=== PATIENT | female | born 1930 | race Hispanic/Latino ===

== ENCOUNTER 2017-04-29 10:57 | Emergency (ER) | payer MEDICARE, OTHER ==
[2017-04-29 10:57] VITALS: BMI 24.7
[2017-04-29 11:04] VITALS: RESP 18; TEMP 97.5
--- NOTE | 2017-04-29 11:25 | ED PDOC ---
Arrival/HPI - General Chief Complaint: Trauma Time Seen by Provider: 04/29/17 11:02 Historian: Patient - History of Present Illness Narrative History of Present Illness (Text): 04/29/17 11:22 86 year old female whose past medical history includes CAD, constipation, hyperkalemia, and alcoholism presents to the emergency department after mechanical fall prior to arrival. Patient states she remembers the entire episode. Denies loss of consciousness. Denies dizziness or weakness before the episode. Patient denies any headache at this time. No other complaints. Patient denies taking any blood thinners except for Aspirin. Patient reports last tetanus a few months ago. Time/Duration: Prior to Arrival Symptom Onset: Sudden Modifying Factors (Text): None Associated Symptoms (Text): None Past Medical History - Provider Review Nursing Documentation Reviewed: Yes - Infectious Disease Hx of Infectious Diseases: None - Tetanus Immunization Tetanus Immunization: Unknown - Cardiac Hx Cardiac Disorders: Yes Hx Hypertension: Yes - Pulmonary Hx Respiratory Disorders: No - Neurological Hx Neurological Disorder: No - HEENT Hx HEENT Disorder: Yes Hx Macular Degeneration: Yes - Renal Hx Renal Disorder: No - Endocrine/Metabolic Hx Endocrine Disorders: No - Hematological/Oncological Hx Blood Disorders: No - Integumentary Hx Dermatological Disorder: No Hx Basal Cell Carcinoma: Yes (right forehead) - Musculoskeletal/Rheumatological Hx Falls: Yes - Gastrointestinal Hx Gastrointestinal Disorders: Yes (colitis) - Genitourinary/Gynecological Hx Reproductive Disorders: No - Psychiatric Hx Psychophysiologic Disorder: No Hx Depression: No Hx Emotional Abuse: No Hx Physical Abuse: No Hx Substance Use: No - Surgical History Hx Hysterectomy: Yes (fibroid) - Anesthesia Hx Anesthesia: Yes Hx Anesthesia Reactions: No Hx Malignant Hyperthermia: No - Suicidal Assessment Feels Threatened In Home Enviroment: No Family/Social History - Physician Review Nursing Documentation Reviewed: Yes Family/Social History: Unknown Family HX Smoking Status: Never Smoked Hx Alcohol Use: No Hx Substance Use: No Hx Substance Use Treatment: No Allergies/Home Meds Allergies/Adverse Reactions: Allergies No Known Allergies Allergy (Verified 05/11/12 08:24) Home Medications: Home Meds Medication Instructions Recorded Confirmed Aspirin [Ecotrin] 81 mg PO DAILY 01/02/17 01/02/17 Ergocalciferol (Vitamin D2) PO DAILY 01/02/17 [Vitamin D] Esomeprazole Magnesium [Nexium] PO DAILY 01/02/17 Metoprolol Succinate [Toprol XL] PO DAILY 01/02/17 Rosuvastatin Calcium 2.5 [Crestor] PO DAILY 01/02/17 Rosuvastatin Calcium [Crestor] PO DAILY 01/02/17 amLODIPine [Norvasc] PO DAILY 01/02/17 Review of Systems - Physician Review All systems were reviewed & negative as marked: Yes Physical Exam - Physical Exam Narrative Physical Exam (Text): - Review of Systems Constitutional: Normal. absent: Fatigue, Weight Change, Fevers Eyes: Normal ENT: Normal Respiratory: Normal absent: SOB, Cough, Sputum Cardiovascular: Normal absent: Chest pain, Palpitations, Syncope Gastrointestinal: Normal absent: Abdominal pain, Diarrhea, Nausea, Vomiting Genitourinary: Normal. absent: Dysuria, Frequency, Hematuria Musculoskeletal: Normal absent: Arthralgias, Back Pain, Neck Pain Skin: Abrasion to forehead and left elbow Neurological: Normal absent: Dizziness, Focal Weakness, Headache Endocrine: Normal Hemo/Lymphatic: Normal Psychiatric: Normal - Physical exam Patient appears age appropriate, speaking full sentences without difficulty No nasal bone deformity or tenderness, no active nasal bleeding, no facial or jaw pain/swelling. No neck midline tenderness, thoracic and lumbar spine with no midline tenderness. Pt moving b/l upper and lower extremities without difficulty, 5/5 strength, with full active and passive ROM. Distal neurovasc fully intact. Abd soft/nt/nd, no hematomas, no peritoneal signs. Neg. pelvic rock. - Systems Exam Head: Present: Bruising on forehead, Superficial abrasion on scalp, Normocephalic Pupils: Present: PERRL Extraocular Muscles: Present: EOMI Conjunctiva: Present: Normal Mouth: Present: Moist Mucous Membranes Neck: Present: Normal Range of Motion. No: MIDLINE TENDERNESS, Paraspinal Tenderness Respiratory/Chest: Present: Clear to Auscultation, Good Air Exchange. No: Respiratory Distress, Accessory Muscle Use, Tachypneic Cardiovascular: Present: Regular Rate and Rhythm, Normal S1, S2, Peripheral Pulses Present. No: Murmurs Abdomen: Present: Normal Bowel Sounds, No: Tenderness, Peritoneal Signs, Rebound, Guarding, Distention Back: Present: Normal Inspection. No: Midline Tenderness, Paraspinal Tenderness Upper Extremity: Present: Left elbow: Superficial abrasion, Full range of motion No: Cyanosis, Edema Lower Extremity: Present: Left knee: Bruising over left patella, Full range of motion No: Edema Neurological: Present: GCS=15, Speech Normal, cranial nerves II through XII fully intact with no cerebellar abnormality, neuro-sensory fully intact. No focal neurological deficits. Skin: Present: Warm, Dry, Normal Color. No: Rashes Lymphatic: Present: OX3, NI, NC Psychiatric: Present: Alert, Oriented x 3, Normal Insight, Normal Concentration. Vital Signs Reviewed: Yes Vital Signs Temp Pulse Resp BP Pulse Ox 04/29/17 12:36 68 18 109/66 98 04/29/17 11:03 97.5 F L 74 18 127/64 97 Temperature: Afebrile Blood Pressure: Normal Pulse: Regular Respiratory Rate: Normal Appearance: Positive for: Well-Appearing, Non-Toxic, Comfortable Pain Distress: None Mental Status: Positive for: Alert and Oriented X 3 Medical Decision Making ED Course and Treatment: Impression: 86 year old female whose past medical history includes CAD, constipation, hyperkalemia, and alcoholism presents to the emergency department after mechanical fall prior to arrival. On physical exam, patient has bruising on forehead, superficial abrasions on scalp and left elbow, and bruising to the left patella. Plan: -- CT's Head, C-spine -- XR's Left Elbow, Left Knee -- Tylenol -- Reassess and disposition Prior Visits: Notes and results from previous visits were reviewed. Patient discharged on after being treated for right lower quadrant abscess. Progress Notes: Patient's medication list reviewed. No blood thinners noted. CT Head Size Maker: Prince Slater MD IMPRESSION: No acute intracranial findings CT Cervical Spine Size Maker: Prince Slater MD IMPRESSION: No acute fractures X-ray Left Elbow Size Maker: Prince Slater MD IMPRESSION: Unremarkable radiographs of the left elbow. X-ray Left Knee Size Maker: Prince Slater MD IMPRESSION: Normal radiographs of the left knee. 04/29/17 12:51 had an extensive d/w pt that although xrays are negative for any acute bony abnormality, it is still very important to fu with pmd and ortho specialist for further w/u and testing such as MRI to r/o any ligamentous/tendenous/meniscal injury. Pt verbalized full understanding of above discussion. patient ambulating with a cane without other assistance states she feels comfortable being dc'd home with outpatient f/u denies any pain Pt states she understands to return to the ER right away for new or worsening symptoms or for inability to f/u with PMD or specialist as instructed. Patient states that she fully agrees with and understands discharge instructions. States that she agrees with the plan and disposition. Verbalized and repeated discharge instructions and plan. I have given the patient opportunity to ask any additional questions. 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 I have reviewed the chart and agree that the record accurately reflects my personal performance of the history, physical exam, medical decision making, and the department course for this patient. I have also personally directed, reviewed, and agree with the discharge instructions and disposition. Disposition/Present on Arrival - Present on Arrival Any Indicators Present on Arrival: No History of DVT/PE: No History of Uncontrolled Diabetes: No Urinary Catheter: No History of Decub. Ulcer: No History Surgical Site Infection Following: None - Disposition Have Diagnosis and Disposition been Completed?: Yes Diagnosis: Fall Disposition: HOME/ ROUTINE Disposition Time: 12:53 Patient Plan: Discharge Condition: GOOD Discharge Instructions (ExitCare): Fall Prevention for Older Adults (ED) Additional Instructions: PLEASE RETURN TO THE EMERGENCY DEPARTMENT FOR NEW OR WORSENING SYMPTOMS. RETURN RIGHT AWAY IF YOU CANNOT FOLLOW UP WITH YOUR PRIMARY CARE DOCTOR, CLINIC, OR SPECIALIST IN 1-2 DAYS. Referrals: Mason ADKINS,Lalito Dee MD [Primary Care Provider] - Follow up with primary
--- NOTE | 2017-04-29 12:00 | CT ---
PROCEDURE: CT HEAD WITHOUT CONTRAST. HISTORY: VILLA x2 weeks COMPARISON: 01/03/2017 TECHNIQUE: Axial computed tomography images were obtained through the head/brain without intravenous contrast. Radiation dose: Total exam DLP = 722 mGy-cm. This CT exam was performed using one or more of the following dose reduction techniques: Automated exposure control, adjustment of the mA and/or kV according to patient size, and/or use of iterative reconstruction technique. FINDINGS: HEMORRHAGE: No intracranial hemorrhage. BRAIN: No mass effect or edema. There is a focal area of encephalomalacia in the right anterior frontal lobe. This is unchanged. There are no acute intracranial findings VENTRICLES: Unremarkable. No hydrocephalus. CALVARIUM: Unremarkable. PARANASAL SINUSES: Unremarkable as visualized. No significant inflammatory changes. MASTOID AIR CELLS: Unremarkable as visualized. No inflammatory changes. OTHER FINDINGS: None. IMPRESSION: No acute intracranial findings
--- NOTE | 2017-04-29 12:02 | CT ---
PROCEDURE: CT Cervical Spine without contrast HISTORY: Fall COMPARISON: None available. TECHNIQUE: Axial computed tomography images were obtained of the cervical spine without the use of intravenous contrast. Coronal and sagittal reformatted images were created and reviewed. Radiation dose: Total exam DLP = 260 mGy-cm. This CT exam was performed using one or more of the following dose reduction techniques: Automated exposure control, adjustment of the mA and/or kV according to patient size, and/or use of iterative reconstruction technique. FINDINGS: VERTEBRAE: No fracture. Normal alignment. No destructive bony lesion. DISCS/SPINAL CANAL/NEURAL FORAMINA: No significant central canal or neural foraminal stenosis. Discs heights are grossly preserved. PARASPINAL SOFT TISSUES: Unremarkable. OTHER FINDINGS: There is facet arthropathy at multiple levels. IMPRESSION: No acute fractures
[2017-04-29 12:36] VITALS: BP 109/66; PULSE 68; O2SAT 98
--- NOTE | 2017-04-29 12:40 | RAD ---
PROCEDURE: Radiographs of the left elbow. HISTORY: fall COMPARISON: No prior. FINDINGS: BONES: Normal. No fracture. JOINTS: Normal. No osteoarthritis. SOFT TISSUES: Normal. JOINT EFFUSION: None. OTHER FINDINGS: None IMPRESSION: Unremarkable radiographs of the left elbow.
--- NOTE | 2017-04-29 12:41 | RAD ---
PROCEDURE: Left Knee Radiographs. HISTORY: Pain. COMPARISON: None. FINDINGS: BONES: Normal. No fracture. JOINTS: Normal. No osteoarthritis. JOINT EFFUSION: None. OTHER FINDINGS: None. IMPRESSION: Normal radiographs of the left knee.
== END 2017-04-29 13:02 | disposition home or self-care (01) ==
LOC: ED 10:57
DX: Z04.3 Encounter for examination and observation following other accident (principal); W01.198A Fall on same level from slipping, tripping and stumbling with subsequent striking against other object, initial encounter; Y93.89 Activity, other specified; Y92.89 Other specified places as the place of occurrence of the external cause; I10 Essential (primary) hypertension

== ENCOUNTER 2017-06-13 15:22 | Emergency (ER) | payer MEDICARE, OTHER ==
[2017-06-13 15:40] VITALS: BP 105/66; PULSE 72; RESP 17; TEMP 98.2; O2SAT 97; BMI 22.1
--- NOTE | 2017-06-13 16:01 | ED PDOC ---
Arrival/HPI - General Historian: Patient - History of Present Illness Time/Duration: 1 hour - General Chief Complaint: Trauma Time Seen by Provider: 06/13/17 15:28 - History of Present Illness Narrative History of Present Illness (Text): 06/13/17 15:57 87 year old female with past medical history of CAD, CHF, constipation , and alcohol abuse presents with left facial swelling after having a fall at home. Patient reports the fall happened 1 hour prior to ED arrival. She was walking to the restroom and her knees suddenly "gave out" which caused her to fall on her right side. She denies LOC, feeling dizzy, weakness, numbness or tingling in her lower extremities. Patient had 2 glasses of wine with lunch. Patient reports this is her 3rd fall this year. She is not taking any blood thinners besides Aspirin 81mg. She uses a cane to walk regular due to her "balance issues". Patient denies headache, fever, chills, SOB, chest pain, abdominal pain, n/v, hip pain, or diarrhea. (Kashmir Muniz) Past Medical History - Provider Review Nursing Documentation Reviewed: Yes - Infectious Disease Hx of Infectious Diseases: None - Tetanus Immunization Tetanus Immunization: Unknown - Cardiac Hx Cardiac Disorders: Yes Hx Hypertension: Yes - Pulmonary Hx Respiratory Disorders: No - Neurological Hx Neurological Disorder: No - HEENT Hx HEENT Disorder: Yes Hx Macular Degeneration: Yes - Renal Hx Renal Disorder: No - Endocrine/Metabolic Hx Endocrine Disorders: No - Hematological/Oncological Hx Blood Disorders: No - Integumentary Hx Dermatological Disorder: No Hx Basal Cell Carcinoma: Yes (right forehead) - Musculoskeletal/Rheumatological Hx Falls: Yes - Gastrointestinal Hx Gastrointestinal Disorders: Yes (colitis) - Genitourinary/Gynecological Hx Reproductive Disorders: No - Psychiatric Hx Psychophysiologic Disorder: No Hx Depression: No Hx Emotional Abuse: No Hx Physical Abuse: No Hx Substance Use: No - Surgical History Hx Hysterectomy: Yes (fibroid) - Anesthesia Hx Anesthesia: Yes Hx Anesthesia Reactions: No Hx Malignant Hyperthermia: No - Suicidal Assessment Feels Threatened In Home Enviroment: No Family/Social History Family/Social History: Unknown Family HX Smoking Status: Never Smoked Hx Alcohol Use: Yes Frequency of alcohol use: Socially Hx Substance Use: No Hx Substance Use Treatment: No Allergies/Home Meds Allergies/Adverse Reactions: Allergies No Known Allergies Allergy (Verified 05/11/12 08:24) Home Medications: Home Meds Medication Instructions Recorded Confirmed Aspirin [Ecotrin] 81 mg PO DAILY 01/02/17 01/02/17 Ergocalciferol (Vitamin D2) PO DAILY 01/02/17 [Vitamin D] Esomeprazole Magnesium [Nexium] PO DAILY 01/02/17 Metoprolol Succinate [Toprol XL] PO DAILY 01/02/17 Rosuvastatin Calcium 2.5 [Crestor] PO DAILY 01/02/17 Rosuvastatin Calcium [Crestor] PO DAILY 01/02/17 amLODIPine [Norvasc] PO DAILY 01/02/17 Review of Systems - Physician Review All systems were reviewed & negative as marked: Yes - Review of Systems Constitutional: Normal. absent: Fatigue, Fevers Eyes: Normal. absent: Vision Changes (No report diplopia), Photophobia ENT: Normal. absent: Hearing Changes Respiratory: Normal. absent: SOB, Cough Cardiovascular: Normal. absent: Chest Pain, Syncope Gastrointestinal: Normal. absent: Abdominal Pain Genitourinary Female: Normal. absent: Dysuria, Frequency, Hematuria Musculoskeletal: Normal. absent: Back Pain Skin: Other (right facial cheek swelling and ecchymosis) Neurological: Normal. absent: Headache, Dizziness Endocrine: Normal Psychiatric: Normal Physical Exam Vital Signs Reviewed: Yes Temperature: Afebrile Blood Pressure: Normal Pulse: Regular Respiratory Rate: Normal Appearance: Positive for: Well-Appearing, Non-Toxic, Comfortable Pain Distress: None Mental Status: Positive for: Alert and Oriented X 3 - Systems Exam Head: Present: Normocephalic, Swelling (extensive right cheek swelling), Ecchymosis (right cheek) Pupils: Present: PERRL, Other ( no diplopia). No: Sluggish, Non-Reactive Extroacular Muscles: Present: EOMI, Other (No pain with extroacular movement, tracking cross midline without difficulty) Conjunctiva: Present: Normal, Other (no subconjunctival hemorrhage appreciated) . No: Injected, Icteric Ears: Present: Normal Mouth: Present: Moist Mucous Membranes, Other (no lacerations appreciated inside of the oral cavity) Nose (External): Present: Atraumatic Neck: Present: Normal Range of Motion Respiratory/Chest: Present: Clear to Auscultation, Good Air Exchange. No: Respiratory Distress, Accessory Muscle Use Cardiovascular: Present: Regular Rate and Rhythm, Normal S1, S2. No: Murmurs Medical Decision Making ED Course and Treatment: 06/13/17 16:21 -CBC, CMP, Coag -UA -CT head, orbital, cervical -serum alcohol DDx: facial fracture, mechanical fall, alcohol intoxication 06/13/17 17:24 serum alcohol 75 UA positive nitrate and LE, patient has no dysuria 06/13/17 17:45 Case discussed with ophthalmology Dr. Barnes. Recommended Augmentin and Medrol dose pack, no further intervention indicated at this time. Progress note: Patient resting in pain comfortably. No reported pain or change of vision. Patient is able to walk with minimal assistance. No abnormal gait and knee pain , patient is at her baseline. 06/13/17 18:20 Discussed with patient extensively the importance of follow up PMD, import customs clearing agent and monitor for acute vision changes. Patient verbalized full understanding of above discussion. Patient states she understands to return to the ER right away for new or worsening symptoms or for inability to follow with PMD or import customs clearing agent as instructed. Patient will take medications prescribed as instructed. (Kashmir Muniz) In agreement with resident note which contains more details about the patient. Patient was seen and evaluated with resident. Came up with plan and treatment together. Patient is a 87 year old female who presents to the emergency department complaining of right facial swelling s/p fall earlier today. CT orbital shows inferior right orbital and lateral and medial maxillary sinus fractures with preseptal periorbital edema. HEENT: No evidence of entrapment. No hyphema. EOMI Intact. PERRLA. No redness. No epistaxis. Case discussed with Opthamology Dr. Barnes who recommends Augmentin and Medrol dose pack and to follow up with him at this clinic in 2-3days. Patient was walked and walked at her based. She walks with a cane. I offerred her admission for possible rehab and fpc and she does not want to stay. She states that last time she was here it took a long time for them to do this and she was miserable. She wants to go home. She is clinically sober and has capacity to make decisions. Her son picked her up and will take her home. She has good family support. (Eulogio Donovan) - Lab Interpretations Lab Results: 06/13/17 16:30 06/13/17 16:30 Lab Results 06/13/17 16:30: Alcohol, Quantitative 75 H 06/13/17 16:30: Sodium 131 L, Potassium 4.1, Chloride 98, Carbon Dioxide 20 L, Anion Gap 17, BUN 8, Creatinine 0.7, Est GFR ( Amer) > 60, Est GFR (Non- Af Amer) > 60, Random Glucose 90, Calcium 8.8, Total Bilirubin 0.7, AST 183 H, ALT 82 H, Alkaline Phosphatase 179 H, Total Protein 6.4, Albumin 3.4, Globulin 3.0, Albumin/Globulin Ratio 1.1 06/13/17 16:30: PT 12.5 H, INR 1.16 H, APTT 25.1 06/13/17 16:30: WBC 5.9 D, RBC 3.26 L, Hgb 11.0 L, Hct 31.9 L, MCV 97.9, MCH 33.7, MCHC 34.5, RDW 16.4 H, Plt Count 173, MPV 9.1, Gran % 64.0, Lymph % (Auto ) 30.4, [place] % (Auto) 4.4, Eos % (Auto) 0.7 L, Baso % (Auto) 0.5, Gran # 3.80, Lymph # 1.8, [place] # 0.3, Eos # 0.0, Baso # 0.03 06/13/17 16:10: Urine Color Yellow, Urine Appearance Cloudy, Urine pH 6.0, Ur Specific [place] >= 1.030, Urine Protein 100 H, Urine Glucose (UA) Negative, Urine Ketones Negative, Urine Blood Large H, Urine Nitrate Positive H, Urine Bilirubin Negative, Urine Urobilinogen 0.2, Ur Leukocyte Esterase Small H, Urine RBC 10 - 15, Urine WBC 25 - 30, Ur Epithelial Cells 3 - 4, Urine Bacteria Mod - RAD Interpretation Narrative RAD Interpretations (Text): 06/13/17 18:47 PROCEDURE: CT Cervical Spine without contrast HISTORY: Trauma COMPARISON: Cervical spine CT without contrast 04/29/2017. TECHNIQUE: Axial computed tomography images were obtained of the cervical spine without the use of intravenous contrast. Coronal and sagittal reformatted images were created and reviewed. Radiation dose: Total exam DLP = 226 mGy-cm. This CT exam was performed using one or more of the following dose reduction techniques: Automated exposure control, adjustment of the mA and/or kV according to patient size, and/or use of iterative reconstruction technique. FINDINGS: VERTEBRAE: No fracture portable spondylolisthesis. Accentuated lordotic curvature due to kyphotic thoracic spinal deformity once again evident. Multiple small bone lucencies are appreciated with diffuse osteopenia with both features likely a function of osteoporosis. Clinically correlate. The pattern of the marrow is stable in the interval. DISCS/SPINAL CANAL/NEURAL FORAMINA: Normal to body heights are again identified with limited vacuum disc changes again seen at C5-6. Minimal multilevel spondylosis identified without significant bony central canal or neural foraminal stenosis appreciable. PARASPINAL SOFT TISSUES: Unremarkable. OTHER FINDINGS: Biapical partial calcified pleural plaques are again appreciated IMPRESSION: 1. No displaced fracture or spondylolisthesis. 2. No prominent central canal or neural foraminal stenosis. 3. Diffuse osteopenia suggests osteoporosis. PROCEDURE: CT ORBITS WITHOUT CONTRAST. HISTORY: trauma COMPARISON: None available. TECHNIQUE: Axial CT images of the orbits were obtained. Coronal and sagittal reformats were generated. Radiation dose: Total exam DLP = 805 mGy-cm. This CT exam was performed using one or more of the following dose reduction techniques: Automated exposure control, adjustment of the mA and/or kV according to patient size, and/or use of iterative reconstruction technique. FINDINGS: RIGHT ORBIT: RIGHT BONY ORBIT: A right orbital floor is appreciated extending from the anteromedial inferior right orbital ridge posterior laterally to the posterior floor. Fracture does not appear depressed. RIGHT INTRAORBITAL STRUCTURES: Globe: Normal. Extraocular muscles: Normal. Post septal space: Normal. Optic Nerve: Normal. Lacrimal Apparatus: Normal. RIGHT PRESEPTAL SOFT TISSUES: Prominent diffuse inferior right periorbital edema. No postseptal edema. LEFT ORBIT: LEFT BONY ORBIT: Normal. LEFT INTRAORBITAL STRUCTURES: Globe: Normal. Extraocular muscles: Normal. Post septal space: Normal Optic Nerve: Normal. . Lacrimal Apparatus: Normal. LEFT PRESEPTAL SOFT TISSUES: Normal. OTHER: There is a lateral right maxillary sinus wall fracture with the medial wall also fractured and slightly displaced medially. Hematoma is identified within the right maxillary sinus as well as trace gas there is trace emphysema seen in the right cheek soft tissues. Edema is seen diffusely throughout the right periorbital soft tissue an is prominent at the right jaw cyst soft tissues diffusely. There is a right nasal bone fracture with rightward bony is nasal septal deviation evident. Zygomatic arches and pterygoid bones are intact bilaterally.. Two small osteomas or sinoliths are seen at the left ethmoid air cells. Left sphenoid sinusitis noted. IMPRESSION: Inferior right orbital as well as lateral and medial maxillary sinus fractures are identified with inferior preseptal periorbital edema identified. No postseptal findings. Hemorrhagic right maxillary sinusitis. Please see details above. PROCEDURE: CT HEAD WITHOUT CONTRAST. HISTORY: head injury r/o ich COMPARISON: Head CT 04/29/2017 without contrast. TECHNIQUE: Axial computed tomography images were obtained through the head/brain without intravenous contrast. Radiation dose: Total exam DLP = 723 mGy-cm. This CT exam was performed using one or more of the following dose reduction techniques: Automated exposure control, adjustment of the mA and/or kV according to patient size, and/or use of iterative reconstruction technique. FINDINGS: HEMORRHAGE: No intracranial hemorrhage. BRAIN: No mass effect or edema. Stable age-related changes are appreciated throughout the cerebrum of the cerebellum and brainstem are again appearing stable. A chronic lobar infarction is again noted at the medial right frontal lobe. No suspicious extra-axial fluid collection. VENTRICLES: Unremarkable. No hydrocephalus. CALVARIUM: No calvarial fracture is identified, however, right-sided facial fractures are identified with hemorrhagic sinus disease at the right maxillary sinus resulting. Please see separate orbits CT 06/13/2017 report. PARANASAL SINUSES: Posttraumatic changes right maxillary sinus with likely fracture associated. MASTOID AIR CELLS: Unremarkable as visualized. No inflammatory changes. OTHER FINDINGS: None. IMPRESSION: No acute intracranial findings. Stable age-related neuro degenerative changes are identified. Chronic lobar infarction again noted right frontal lobe. Posttraumatic hemorrhagic this sinus disease right maxillary sinus with associated fracture. Please see separate orbits CT report for additional detail 06/13/2017. CXR: No active disease. Read by me Hip X-ray: No evidence of acute hip fractures. Read by me (Kashmir Muniz) Radiology Orders: 06/13/17 15:52 CERVICAL SPINE W/O CONTRAST [CT] Stat ORBITS/ FACIALS W/O CONTRAST [CT] Stat 06/13/17 15:54 Hip Right [HIP MIN 2V W/ PELVIS RT] [RAD] Stat 06/13/17 16:02 CHEST PORTABLE [RAD] Stat 06/13/17 16:11 HEAD W/O CONTRAST [CT] Stat - Medication Orders Current Medication Orders: Discontinued Medications Amoxicillin/Clavulanate Potassium (Augmentin 875 Mg-125 Mg Tab) 1 tab PO STAT STA PRN Reason: Protocol Stop: 06/13/17 17:51 Last Admin: 06/13/17 18:48 Dose: 1 tab - PA / PILLAR WORKER / Resident Statement / has reviewed & agrees with the documentation as recorded. /DO has examined the patient and agrees with the treatment plan. Disposition/Present on Arrival - Present on Arrival Any Indicators Present on Arrival: No History of DVT/PE: No History of Uncontrolled Diabetes: No Urinary Catheter: No History of Decub. Ulcer: No History Surgical Site Infection Following: None - Disposition Have Diagnosis and Disposition been Completed?: Yes Disposition Time: 18:06 Patient Plan: Discharge - Disposition Diagnosis: Facial trauma, Orbital fracture, Maxillary sinus fracture, UTI (urinary tract infection) Disposition: HOME/ ROUTINE Patient Problems: Current Active Problems Problem Status Onset Facial trauma Acute Maxillary sinus fracture Acute Orbital fracture Acute UTI (urinary tract infection) Acute Condition: FAIR Discharge Instructions (ExitCare): Facial Fracture (ED), Urinary Tract Infection in Women (ED) Additional Instructions: Rashida Red, thank you for letting us take care of you today. Your provider was Dr. Donovan. You were treated for inferior orbital fracture and medial maxillary sinus fracture. The emergency medical care you received today was directed at your acute symptoms. If you were prescribed any medication, please fill it and take as directed. It may take several days for your symptoms to resolve. Return to the Emergency Department if your symptoms worsen, do not improve, or if you have any other problems. Please contact your doctor or call one of the physicians/clinics you have been referred to that are listed on the Patient Visit Information form that is included in your discharge packet. Bring any paperwork you were given at discharge with you along with any medications you are taking to your follow up visit. Our treatment cannot replace ongoing medical care by a primary care provider (PCP) outside of the emergency department. Please take medications as prescribed. Thank you for allowing the [facility] team to be part of your care today. Prescriptions: Amoxicillin/Clavulanate [Augmentin 875 MG-125 MG] 1 tab PO BID #14 tab Methylprednisolone [Medrol Dose Pack (21 tabs)] 4 mg PO DAILY #21 mg Sulfamethoxazole/Trimethoprim [Bactrim DS 800 mg-160 mg] 1 tab PO BID #10 tab Referrals: Jenifer Munguia MD [Primary Care Provider] - Follow up with primary Filiberto Barnes [Staff Provider] - Follow up with primary [facility] Jason Mayes [Outside] - Follow up with primary Forms: [employer] ([place])
[2017-06-13 16:27] LABS: URINE BILIRUBIN NEGATIVE (NEGATIVE); URINE BLOOD LARGE (NEGATIVE); URINE GLUCOSE (UA) NEGATIVE (NEGATIVE); URINE KETONE NEGATIVE (NEGATIVE); URINE LEUKOCYTE ESTERASE SMALL Leu/uL (NEGATIVE); URINE PROTEIN 100 mg/dL (<30 mg/dL); URINE UROBILINOGEN 0.2 E.U./dL (<1 E.U./dL)
[2017-06-13 16:28] LABS: URINE APPEARANCE CLOUDY (CLEAR); URINE COLOR YELLOW (YELLOW)
[2017-06-13 16:35] LABS: ADD MANUAL DIFF? NO
[2017-06-13 16:53] LABS: ALB/GLOB RATIO 1.1 (1.1-1.8); ALKALINE PHOSPHATASE 179 U/L (38-133); ALT/SGPT 82 U/L (7-56); AST/SGOT 183 U/L (15-39); BILIRUBIN,TOTAL 0.7 mg/dL (0.2-1.3); BLOOD UREA NITROGEN 8 mg/dL (7-21); CALCIUM 8.8 mg/dL (8.4-10.5); CARBON DIOXIDE 20 mmol/L (21-33); CHLORIDE 98 mmol/L (98-107); GFR AFRICAN-AMERICAN > 60; GLUCOSE,RANDOM 90 mg/dL (70-110); POTASSIUM 4.1 mmol/L (3.6-5.0); SODIUM 131 mmol/L (132-148); TOTAL PROTEIN 6.4 g/dL (5.8-8.3)
[2017-06-13 17:07] LABS: BASO # 0.03 K/mm3 (0.0-2.0); BASO % 0.5 % (0.0-3.0); EOS % 0.7 % (1.5-5.0); HEMATOCRIT 31.9 % (36.0-48.0); LYMPH # 1.8 (1.2-3.4); LYMPH % 30.4 % (22.0-35.0); MEAN CELL VOLUME 97.9 fL (80.0-105.0); MEAN CORPUSCULAR HEMOGLOBIN 33.7 pg (25.0-35.0); MEAN CORPUSCULAR HGB CONC 34.5 g/dl (31.0-37.0); MEAN PLATELET VOLUME 9.1 fl (7.0-11.0); MONO # 0.3 (0.1-0.6); MONO % 4.4 % (1.0-6.0); PLATELET COUNT 173 10^3/uL (120.0-450.0); RED CELL DISTRIBUTION WIDTH 16.4 % (11.5-14.5); WHITE BLOOD COUNT 5.9 10^3/ul (4.5-11.0)
--- NOTE | 2017-06-13 17:07 | CT ---
PROCEDURE: CT HEAD WITHOUT CONTRAST. HISTORY: head injury r/o ich COMPARISON: Head CT 04/29/2017 without contrast. TECHNIQUE: Axial computed tomography images were obtained through the head/brain without intravenous contrast. Radiation dose: Total exam DLP = 723 mGy-cm. This CT exam was performed using one or more of the following dose reduction techniques: Automated exposure control, adjustment of the mA and/or kV according to patient size, and/or use of iterative reconstruction technique. FINDINGS: HEMORRHAGE: No intracranial hemorrhage. BRAIN: No mass effect or edema. Stable age-related changes are appreciated throughout the cerebrum of the cerebellum and brainstem are again appearing stable. A chronic lobar infarction is again noted at the medial right frontal lobe. No suspicious extra-axial fluid collection. VENTRICLES: Unremarkable. No hydrocephalus. CALVARIUM: No calvarial fracture is identified, however, right-sided facial fractures are identified with hemorrhagic sinus disease at the right maxillary sinus resulting. Please see separate orbits CT 06/13/2017 report. PARANASAL SINUSES: Posttraumatic changes right maxillary sinus with likely fracture associated. MASTOID AIR CELLS: Unremarkable as visualized. No inflammatory changes. OTHER FINDINGS: None. IMPRESSION: No acute intracranial findings. Stable age-related neuro degenerative changes are identified. Chronic lobar infarction again noted right frontal lobe. Posttraumatic hemorrhagic this sinus disease right maxillary sinus with associated fracture. Please see separate orbits CT report for additional detail 06/13/2017.
[2017-06-13 17:17] LABS: URINE BACTERIA MOD (NEG); URINE WBC 25 - 30 /hpf (0-6)
--- NOTE | 2017-06-13 17:17 | CT ---
PROCEDURE: CT ORBITS WITHOUT CONTRAST. HISTORY: trauma COMPARISON: None available. TECHNIQUE: Axial CT images of the orbits were obtained. Coronal and sagittal reformats were generated. Radiation dose: Total exam DLP = 805 mGy-cm. This CT exam was performed using one or more of the following dose reduction techniques: Automated exposure control, adjustment of the mA and/or kV according to patient size, and/or use of iterative reconstruction technique. FINDINGS: RIGHT ORBIT: RIGHT BONY ORBIT: A right orbital floor is appreciated extending from the anteromedial inferior right orbital ridge posterior laterally to the posterior floor. Fracture does not appear depressed. RIGHT INTRAORBITAL STRUCTURES: Globe: Normal. Extraocular muscles: Normal. Post septal space: Normal. Optic Nerve: Normal. Lacrimal Apparatus: Normal. RIGHT PRESEPTAL SOFT TISSUES: Prominent diffuse inferior right periorbital edema. No postseptal edema. LEFT ORBIT: LEFT BONY ORBIT: Normal. LEFT INTRAORBITAL STRUCTURES: Globe: Normal. Extraocular muscles: Normal. Post septal space: Normal Optic Nerve: Normal. . Lacrimal Apparatus: Normal. LEFT PRESEPTAL SOFT TISSUES: Normal. OTHER: There is a lateral right maxillary sinus wall fracture with the medial wall also fractured and slightly displaced medially. Hematoma is identified within the right maxillary sinus as well as trace gas there is trace emphysema seen in the right cheek soft tissues. Edema is seen diffusely throughout the right periorbital soft tissue an is prominent at the right jaw cyst soft tissues diffusely. There is a right nasal bone fracture with rightward bony is nasal septal deviation evident. Zygomatic arches and pterygoid bones are intact bilaterally.. Two small osteomas or sinoliths are seen at the left ethmoid air cells. Left sphenoid sinusitis noted. IMPRESSION: Inferior right orbital as well as lateral and medial maxillary sinus fractures are identified with inferior preseptal periorbital edema identified. No postseptal findings. Hemorrhagic right maxillary sinusitis. Please see details above.
--- NOTE | 2017-06-13 17:21 | CT ---
PROCEDURE: CT Cervical Spine without contrast HISTORY: Trauma COMPARISON: Cervical spine CT without contrast 04/29/2017. TECHNIQUE: Axial computed tomography images were obtained of the cervical spine without the use of intravenous contrast. Coronal and sagittal reformatted images were created and reviewed. Radiation dose: Total exam DLP = 226 mGy-cm. This CT exam was performed using one or more of the following dose reduction techniques: Automated exposure control, adjustment of the mA and/or kV according to patient size, and/or use of iterative reconstruction technique. FINDINGS: VERTEBRAE: No fracture portable spondylolisthesis. Accentuated lordotic curvature due to kyphotic thoracic spinal deformity once again evident. Multiple small bone lucencies are appreciated with diffuse osteopenia with both features likely a function of osteoporosis. Clinically correlate. The pattern of the marrow is stable in the interval. DISCS/SPINAL CANAL/NEURAL FORAMINA: Normal to body heights are again identified with limited vacuum disc changes again seen at C5-6. Minimal multilevel spondylosis identified without significant bony central canal or neural foraminal stenosis appreciable. PARASPINAL SOFT TISSUES: Unremarkable. OTHER FINDINGS: Biapical partial calcified pleural plaques are again appreciated IMPRESSION: 1. No displaced fracture or spondylolisthesis. 2. No prominent central canal or neural foraminal stenosis. 3. Diffuse osteopenia suggests osteoporosis.
[2017-06-13 17:22] LABS: INR 1.16 (0.93-1.08); PARTIAL THROMBOPLASTIN TIME 25.1 Seconds (23.7-30.8)
[2017-06-13] MEDS ORDERED: Amoxicillin-Clav 875-125 mg Tab PO STA (17:50)
--- NOTE | 2017-06-16 18:10 | RAD ---
HISTORY: Fall COMPARISON: 01/13/2017. FINDINGS: LUNGS: The lungs are well inflated and clear. PLEURA: No significant pleural effusion identified, no pneumothorax apparent. CARDIOVASCULAR: The heart is normal in size. Atherosclerotic aortic arch calcifications are present. OSSEOUS STRUCTURES: There is diffuse bone demineralization. VISUALIZED UPPER ABDOMEN: Normal. OTHER FINDINGS: None. IMPRESSION: No acute findings.
--- NOTE | 2017-06-17 21:24 | RAD ---
PROCEDURE: Right Hip and pelvis Radiographs. HISTORY: COMPARISON: None. FINDINGS: BONES: Normal. No fracture. JOINTS: Normal. SOFT TISSUES: Normal. OTHER FINDINGS: None. IMPRESSION: Negative study
== END 2017-06-13 18:50 | disposition home or self-care (01) ==
LOC: ED 15:22
DX: S02.81XA Fracture of other specified skull and facial bones, right side, initial encounter for closed fracture (principal); S02.40CA Maxillary fracture, right side, initial encounter for closed fracture; W01.0XXA Fall on same level from slipping, tripping and stumbling without subsequent striking against object, initial encounter; Y93.89 Activity, other specified; Y92.008 Other place in unspecified non-institutional (private) residence as the place of occurrence of the external cause; N39.0 Urinary tract infection, site not specified
CPT/HCPCS: 72HRC; 87181

== ENCOUNTER 2017-06-13 21:30 | Inpatient (IN) | payer MEDICARE, OTHER ==
[2017-06-13 21:31] VITALS: BMI 22.1
--- NOTE | 2017-06-13 21:57 | ED PDOC ---
Arrival/HPI <Eulogio Donovan - Last Filed: 06/13/17 22:37> - General Historian: Patient - History of Present Illness Time/Duration: 1-3 hours Symptom Onset: Sudden Symptom Course: Resolved <Kashmir Muniz - Last Filed: 06/13/17 22:37> - General Chief Complaint: GI Problem Time Seen by Provider: 06/13/17 21:32 - History of Present Illness Narrative History of Present Illness (Text): 06/13/17 21:53 87 year old female with history of frequent falls, CAD, CHF, constipation, and alcohol abuse presents with weakness and diarrhea. Patient was seen in the ED earlier today after having a fall at home. Patient was discharged with Augmentin and Medrol dose pack per ophthalmology's recommendation for inferior orbital and medial maxillary sinus fracture. After getting home from the hospital, patient had 4 bouts of diarrhea and could not get up from the toilet seat afterwards due to lower extremity weakness. Patient is afraid to have another fall home and decided to come to the ED to be evaluated. Patient's niece and nephew are concern as patient is high fall risk. She denies having allergy to food or medications. Patient denies vision changes , headache, fever, chills, SOB, chest pain, abdominal pain, nausea, vomiting, or urinary symptoms. (Kashmir Muniz) Past Medical History - Provider Review Nursing Documentation Reviewed: Yes - Infectious Disease Hx of Infectious Diseases: None - Tetanus Immunization Tetanus Immunization: Unknown - Cardiac Hx Cardiac Disorders: Yes Hx Hypertension: Yes - Pulmonary Hx Respiratory Disorders: No - Neurological Hx Neurological Disorder: No - HEENT Hx HEENT Disorder: Yes Hx Macular Degeneration: Yes - Renal Hx Renal Disorder: No - Endocrine/Metabolic Hx Endocrine Disorders: No - Hematological/Oncological Hx Blood Disorders: No - Integumentary Hx Dermatological Disorder: No Hx Basal Cell Carcinoma: Yes (right forehead) - Musculoskeletal/Rheumatological Hx Falls: Yes - Gastrointestinal Hx Gastrointestinal Disorders: Yes (colitis) - Genitourinary/Gynecological Hx Reproductive Disorders: No - Psychiatric Hx Psychophysiologic Disorder: No Hx Depression: No Hx Emotional Abuse: No Hx Physical Abuse: No Hx Substance Use: No - Surgical History Hx Hysterectomy: Yes (fibroid) - Anesthesia Hx Anesthesia: Yes Hx Anesthesia Reactions: No Hx Malignant Hyperthermia: No - Suicidal Assessment Feels Threatened In Home Enviroment: No <Kashmir Muniz - Last Filed: 06/13/17 22:37> Family/Social History - Physician Review Nursing Documentation Reviewed: Yes Family/Social History: Unknown Family HX Smoking Status: Never Smoked Hx Alcohol Use: Yes Hx Substance Use: No Hx Substance Use Treatment: No <Kashmir Muniz - Last Filed: 06/13/17 22:37> Allergies/Home Meds <Eulogio Donovan Alberto - Last Filed: 06/13/17 22:37> <Kashmir Muniz - Last Filed: 06/13/17 22:37> Allergies/Adverse Reactions: Allergies No Known Allergies Allergy (Verified 05/11/12 08:24) Home Medications: Home Meds Medication Instructions Recorded Confirmed Aspirin [Ecotrin] 81 mg PO DAILY 01/02/17 06/13/17 Ergocalciferol (Vitamin D2) 400 unit PO DAILY 01/02/17 06/13/17 [Vitamin D] Esomeprazole Magnesium [Nexium] 5 mg PO DAILY 01/02/17 06/13/17 Metoprolol Succinate [Toprol XL] 25 mg PO DAILY 01/02/17 06/13/17 Rosuvastatin Calcium [Crestor] 5 mg PO DAILY 01/02/17 06/13/17 amLODIPine [Norvasc] 5 mg PO DAILY 01/02/17 06/13/17 Sulfamethoxazole/Trimethoprim 1 tab PO BID 06/13/17 06/13/17 [Bactrim DS Tab] Review of Systems - Physician Review All systems were reviewed & negative as marked: Yes - Review of Systems Constitutional: Other (lower extremity weakness) Eyes: Other (periorbital ecchymosis). absent: Vision Changes, Photophobia, Eye Pain ENT: Epistaxis. absent: Voice Changes Respiratory: Normal. absent: SOB, Cough Cardiovascular: Normal. absent: Chest Pain, Palpitations, Syncope Gastrointestinal: Stool Changes, Diarrhea. absent: Abdominal Pain, Nausea, Vomiting Genitourinary Female: Normal. absent: Dysuria, Frequency Musculoskeletal: Normal. absent: Arthralgias, Back Pain Skin: Other (right facial swelling and right periorbital ecchymosis) Neurological: Normal. absent: Headache, Dizziness, Speech Changes Endocrine: Normal. absent: Diaphoresis Hemo/Lymphatic: Normal Psychiatric: Normal. absent: Anxiety, Depression <Kashmir Muniz - Last Filed: 06/13/17 22:37> Physical Exam Vital Signs Reviewed: Yes Temperature: Afebrile Blood Pressure: Normal Pulse: Regular Respiratory Rate: Normal Appearance: Positive for: Well-Appearing, Non-Toxic, Comfortable Pain Distress: None Mental Status: Positive for: Alert and Oriented X 3 - Systems Exam Head: Present: Normocephalic, Swelling (left facial swelling and ecchymosis), Ecchymosis. No: Tenderness Pupils: Present: PERRL. No: Sluggish, Non-Reactive Extroacular Muscles: Present: EOMI, Other Conjunctiva: Present: Normal, Other (no subconjunctival hemorrhage) Ears: Present: Normal Mouth: Present: Moist Mucous Membranes Neck: Present: Normal Range of Motion Respiratory/Chest: Present: Clear to Auscultation, Good Air Exchange. No: Respiratory Distress, Accessory Muscle Use Cardiovascular: Present: Regular Rate and Rhythm, Normal S1, S2. No: Murmurs Abdomen: Present: Normal Bowel Sounds. No: Tenderness, Distention, Peritoneal Signs Upper Extremity: Present: Normal Inspection. No: Cyanosis, Edema Lower Extremity: Present: Normal Inspection. No: Edema Neurological: Present: GCS=15, CN II-XII Intact, Speech Normal Skin: Present: Warm, Dry, Normal Color. No: Rashes Psychiatric: Present: Alert, Oriented x 3, Normal Insight, Normal Concentration <Kashmir Muniz - Last Filed: 06/13/17 22:37> Vital Signs Temp Pulse Resp BP Pulse Ox 06/13/17 21:40 97.5 F L 77 18 118/61 97 Medical Decision Making <Eulogio Donovan - Last Filed: 06/13/17 22:37> <Kashmir Muniz - Last Filed: 06/13/17 22:37> ED Course and Treatment: In agreement with resident note, which includes further HPI details. Patient was seen and evaluated with resident, came up with plan and treatment together. 06/13/17 22:[address] Morel who has admitted this patient in the past for Dr. Munguia. Will admit this patient for frequent falls and ataxia. Patient is unsafe to go home because of fall risk. She lives alone. (Eulogio Donovan) 06/13/17 22:29 Patient has a high fall risk and history of multiple falls. Discussed case with Dr. Washington. Agreed with treatment plan. Will admit patient to med/surg. (Kashmir Muniz) Disposition/Present on Arrival - Present on Arrival Any Indicators Present on Arrival: No - Disposition Have Diagnosis and Disposition been Completed?: Yes Disposition Time: 22:35 Patient Plan: Observation <Eulogio Donovan - Last Filed: 06/13/17 22:37> - Present on Arrival Any Indicators Present on Arrival: No History of DVT/PE: No History of Uncontrolled Diabetes: No Urinary Catheter: No History of Decub. Ulcer: No History Surgical Site Infection Following: None - Disposition Have Diagnosis and Disposition been Completed?: Yes Patient Plan: Observation, Telemetry <Kashmir Muniz - Last Filed: 06/13/17 22:37> - Disposition Diagnosis: At high risk for falls, Ataxia Disposition: HOSPITALIZED Patient Problems: Current Active Problems Problem Status Onset At high risk for falls Acute Ataxia Acute Condition: STABLE Referrals: Jenifer Munguia MD [Primary Care Provider] - Follow up with primary
[2017-06-14 09:28] VITALS: RESP 20
[2017-06-14] MEDS: Metoprolol Succinate 25 mg XL Tab PO SCH (10:36)
[2017-06-14 10:51] LABS: ADD MANUAL DIFF? NO
[2017-06-14 10:54] LABS: BASO # 0.03 K/mm3 (0.0-2.0); BASO % 0.5 % (0.0-3.0); EOS % 0.3 % (1.5-5.0); GRAN # 4.74 (1.4-6.5); GRAN % 73.9 % (50.0-68.0); HEMATOCRIT 33.2 % (36.0-48.0); LYMPH # 1.3 (1.2-3.4); LYMPH % 20.2 % (22.0-35.0); MEAN CELL VOLUME 99.1 fL (80.0-105.0); MEAN CORPUSCULAR HGB CONC 34.3 g/dl (31.0-37.0); MEAN PLATELET VOLUME 9.2 fl (7.0-11.0); MONO # 0.3 (0.1-0.6); MONO % 5.1 % (1.0-6.0); PLATELET COUNT 178 10^3/uL (120.0-450.0); RED CELL DISTRIBUTION WIDTH 16.4 % (11.5-14.5); WHITE BLOOD COUNT 6.4 10^3/ul (4.5-11.0)
[2017-06-14] MEDS ORDERED: Sodium Chloride 0.9% 1,000 ML IV SCH (11:00)
--- NOTE | 2017-06-14 11:00 | HP ---
HISTORY OF PRESENT ILLNESS: This is an 87-year-old female, who was coming into the hospital after she had a fall. The patient has a past medical history of coronary artery disease, macular degeneration, constipation, and alcoholism. The patient on a previous admission had an abscess that was drained. She says her primary doctor is Dr. Munguia. She had a fall at home. She had come into the emergency room for further evaluation. The patient was discharged on Augmentin and a Medrol Dosepak because of her inferior orbital and medial mastoid sinus fracture on the right side conservative management. She says that she started having diarrhea, when she went home and she had 4 bouts of diarrhea. Says she came in further evaluation. She felt weak. She was afraid that she may have another fall at home. She denies any dizziness. No chest pain or shortness of breath. No nausea. No vomiting. No dysuria or frequency. No back pain. No weakness in the arms or the legs. She says her vision is okay. She does have pain, but she says it is tolerable. PAST MEDICAL HISTORY: 1. Macular degeneration. 2. Dyslipidemia. 3. Coronary artery disease. 4. Constipation. 5. Hypertension. 6. Fall. 7. Alcoholism. SOCIAL HISTORY: The patient does drink. She says she does not drink much. She denies smoking. FAMILY HISTORY: Noncontributory. MEDICATIONS: 1. Aspirin. 2. Vitamin. 3. Toprol. REVIEW OF SYSTEMS: All other review of symptoms are within normal limits, except that was mentioned. PHYSICAL EXAMINATION: VITAL SIGNS: Temperature 98.6, pulse 78, blood pressure 129/65, respirations 18, O2 saturation 99%, height 5 feet 9 inches, weight 150 pounds, and BMI is 22.2. GENERAL: The patient is lying in bed, flat, and in no apparent distress. HEAD AND NECK EXAM: Trauma to the right side of the face. She has ecchymosis in the right cheek area going into the right side of the face. Mild ecchymosis to the right periorbital area. There is pain on palpation. Conjunctivae are pink. Throat is clear and mouth with moist mucosa. Oropharynx is benign. EYES: Extraocular movements are intact. PERRLA. NECK: Supple. No JVD, thyromegaly, or adenopathy. No bruits. HEART: S1 and S2 regular rate and rhythm. No murmurs, rubs, or gallops. LUNGS: Clear to auscultation bilaterally. No wheezing, rales, or rhonchi appreciated. No retractions on exam. ABDOMEN: Soft, nontender, and nondistended. Bowel sounds are positive in all quadrants. No rebound. No hepatosplenomegaly. EXTREMITIES: No cyanosis, clubbing, or edema. NEUROLOGIC: No facial asymmetry. Tongue is midline. No uvula deviation. Power is 5/5 in upper extremity and 5/5 in lower extremity. Sensation is normal in upper extremities and lower extremities. PSYCHIATRIC: Awake, alert, oriented x3. No anxiety or depression symptoms. Good insight. Normal affect. GENITOURINARY: No CVA tenderness. VASCULAR: 2+ pulses in carotid and pedal pulses. SKIN: No erythema or abnormal nodules noted. SPINE: Normal curvature. LYMPHADENOPATHY: No anterior cervical or posterior cervical adenopathy. No inguinal adenopathy. LABORATORY DATA: Reviewed. White count of 5.9, hemoglobin 11.0. Chemistry showed a sodium of 131, creatinine 0.7. AST and ALT 183 and 82, alkaline phosphatase 179. Her alcohol level is 75. CT of the head done shows no acute intracranial findings. 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 There is posttraumatic hemorrhagic sinus disease in the right maxillary sinus. The orbit CT does shows that there is an inferior right orbital, as well as lateral and medial mastoid sinus fracture. ASSESSMENT: 1. Right orbital fracture. 2. Right maxillary sinus fracture. 3. Fall. 4. Alcoholism. 5. Dyslipidemia. 6. Coronary artery disease. 7. Hypertension. 8. Macular degeneration. PLAN: The patient is comfortable. She says that she does not wish to stay in the hospital, prefers to go home. She is going through a surgical therapy. I will continue her Lipitor for dyslipidemia. She is on Norvasc for hypertension. It is going to be conservative management for her right maxillary sinus and orbital fracture. She is going to need Dr. Matthews to evaluate for falls. Initially thought she had a pacemaker. She denies having a pacemaker. I did advice her not to go home and go back to rehab. She says that she had gone to rehab and felt that she did not improve much. She lives alone, but says that she has family and friends to help herm, told her that she may hurt herself or have significant fall with major complications. She is not at home with someone. She will think about what she wants to do. She is unsafe for discharge at this point. Juan Jose Washington MD
[2017-06-14 11:03] LABS: ALB/GLOB RATIO 1.3 (1.1-1.8); ALKALINE PHOSPHATASE 193 U/L (38-133); ALT/SGPT 79 U/L (7-56); AST/SGOT 140 U/L (15-39); BILIRUBIN,TOTAL 0.8 mg/dL (0.2-1.3); BLOOD UREA NITROGEN 11 mg/dL (7-21); CALCIUM 8.9 mg/dL (8.4-10.5); CARBON DIOXIDE 26 mmol/L (21-33); CHLORIDE 95 mmol/L (95-110); GFR AFRICAN-AMERICAN > 60; GLUCOSE,RANDOM 120 mg/dL (70-110); MAGNESIUM 1.4 mg/dL (1.7-2.2); POTASSIUM 3.2 mmol/L (3.6-5.0); SODIUM 132 mmol/L (132-148); TOTAL PROTEIN 6.5 g/dL (5.8-8.3)
[2017-06-14] MEDS ORDERED: Potassium Chloride 40 mEq/30 ml LIQ UD PO ONE (13:23)
[2017-06-14] MEDS ORDERED: Magnesium Sulfate 2 GM in Sodium Chloride 0.9% 100 ML IVPB ONE (13:23)
[2017-06-14] MEDS ORDERED: Magnesium Oxide 400 mg Tab UD PO SCH (13:30)
[2017-06-14 16:04] LABS: PH,URINE 6.5 (4.7-8.0); URINE BILIRUBIN SMALL (NEGATIVE); URINE BLOOD LARGE (NEGATIVE); URINE GLUCOSE (UA) NEGATIVE (NEGATIVE); URINE KETONE NEGATIVE (NEGATIVE); URINE LEUKOCYTE ESTERASE MODERATE Leu/uL (NEGATIVE); URINE PROTEIN 100 mg/dL (<30 mg/dL); URINE UROBILINOGEN 0.2 E.U./dL (<1 E.U./dL)
[2017-06-14 16:06] LABS: URINE APPEARANCE SL CLOUDY (CLEAR); URINE COLOR YELLOW (YELLOW)
[2017-06-14 16:24] LABS: URINE RBC TNTC /hpf (0-2); URINE WBC 20 - 25 /hpf (0-6)
[2017-06-14 16:25] LABS: URINE BACTERIA FEW (NEG)
--- NOTE | 2017-06-14 23:40 | CON ---
DATE: REASON FOR CONSULTATION: Cardiac evaluation, admitted after a fall. HISTORY OF PRESENT ILLNESS: This is an 87-year-old female with past medical history significant for hypertension, hyperlipidemia, and alcohol abuse who fell down at home and sustained trauma on Wednesday. The patient went home, does not want to stay and had developed diarrhea, abdominal pain, feeling very weak, so came to the emergency room. Denies any chest pain, shortness of breath, or any palpitation. PAST MEDICAL HISTORY: Significant for coronary artery disease, hypertension, hyperlipidemia, and history of hyperkalemia in the past. PERSONAL/SOCIAL HISTORY: Denies smoking, but history of heavy alcohol abuse and that . ALLERGIES: NO KNOWN DRUG ALLERGIES. CURRENT MEDICATIONS: The patient is taking Crestor, metoprolol 50 mg twice a day, amlodipine, Toprol XL daily, and Nexium. REVIEW OF SYSTEMS: As per HPI. PHYSICAL EXAMINATION: As follows: VITAL SIGNS: Temperature afebrile, heart rate 81, and blood pressure 126/68. HEENT: PERRLA. Extraocular muscles are intact. NECK: Supple. No carotid bruits or thyromegaly. LUNGS: Chest clear to auscultation. HEART: S1 and S2. Regular. ABDOMEN: Soft. EXTREMITIES: Clubbing and cyanosis are negative. LABORATORY DATA: Blood workup as follows: WBC 6.1, hemoglobin 11.1, hematocrit 33.2, and platelet count 178. Chemistry shows sodium 130, potassium 3.2, chloride 95, carbon dioxide of 26, anion gap of 40, BUN 11, creatinine 0.7, AST 140, ALT 79, alkaline phosphatase 193, total protein 6.5, albumin 3.6, and albumin-globulin ratio 0.2. IMPRESSION: An 87-year-old female with past medical history significant for coronary artery disease, congestive heart failure, constipation, history of alcohol abuse, who fell down at home and sustained inferior orbital and right medial maxillary sinus fracture discharged home on Wednesday as per Ophthalmology with a Medrol Bassem and antibiotic, came back again with 4 bouts of diarrhea and feeling very weak, yesterday got admitted. Denies any chest pain, shortness of breath, or any palpitation. He has a history of hypertension, history of coronary artery disease, and history of constipation. RECOMMENDATIONS: We will do orthostatic hypotension, start gentle hydration, ambulate, rehab, when the patient is stable probably transfer to transitional care unit for further rehab therapy. Complete cessation of smoking. Complete abstinence of alcohol abuse and compliance with the medication. Supplement electrolytes as needed and we will follow with you. Thank you Dr. Orourke for providing me the opportunity in taking care of Rashida Red. Jenifer Matthews MD
[2017-06-15 07:55] LABS: HEMATOCRIT 30.4 % (36.0-48.0); MEAN CORPUSCULAR HEMOGLOBIN 33.6 pg (25.0-35.0); MEAN CORPUSCULAR HGB CONC 33.9 g/dl (31.0-37.0); RED CELL DISTRIBUTION WIDTH 16.4 % (11.5-14.5); WHITE BLOOD COUNT 3.6 10^3/ul (4.5-11.0)
[2017-06-15 08:44] LABS: ALKALINE PHOSPHATASE 168 U/L (38-133); ALT/SGPT 64 U/L (7-56); AST/SGOT 113 U/L (15-39); BILIRUBIN,TOTAL 0.7 mg/dL (0.2-1.3); BLOOD UREA NITROGEN 7 mg/dL (7-21); CALCIUM 8.2 mg/dL (8.4-10.5); CARBON DIOXIDE 27 mmol/L (21-33); CHLORIDE 100 mmol/L (95-110); GFR AFRICAN-AMERICAN > 60; GLUCOSE,RANDOM 104 mg/dL (70-110); MAGNESIUM 1.9 mg/dL (1.7-2.2); PHOSPHOROUS 2.7 mg/dL (2.5-4.5); POTASSIUM 3.7 mmol/L (3.6-5.0); SODIUM 134 mmol/L (132-148); TOTAL PROTEIN 5.7 g/dL (5.8-8.3)
--- NOTE | 2017-06-15 09:57 | PN ---
DATE: 06/15/2017 SUBJECTIVE: The patient has no complaints of any chest pain. No shortness of breath. No headaches. PHYSICAL EXAMINATION: VITAL SIGNS: Temperature is 98.3, pulse of 85, blood pressure 116/65, and respirations 20. GENERAL: The patient is lying in bed, flat, comfortable. HEENT: No oral lesion. Anicteric sclerae. Moist mucosa. NECK: No JVD, adenopathy, or thyromegaly. CARDIOVASCULAR: S1 and S2, regular. No murmurs, rubs, or gallops. LUNGS: Clear to auscultation bilaterally. No wheeze, rales, or rhonchi. ABDOMEN: Bowel sounds are positive, soft, nontender and nondistended. EXTREMITIES: no cyanosis, clubbing or edema. ASSESSMENT: 1. Fall. 2. Macular degeneration. 3. Dyslipidemia. 4. Coronary artery disease. 5. Constipation. 6. Hypertension. 7. Right orbital fracture. 8. Right maxillary sinus fracture. 9. Hypomagnesemia. PLAN: The patient's pain is controlled. She was evaluated by Dr. Matthews. She has been advised to stop drinking alcohol. This may be much contributing to her falls. The patient was seen by physical therapy. TCU has been recommended. She is on amlodipine for hypertension. She is on metoprolol. She was placed on magnesium. She is on Lipitor for dyslipidemia. The patient is going to have a TCU evaluation done. We will await further input. I appreciate Dr. Matthews's input as well. Juan Jose Washington MD
[2017-06-15] MEDS: Metoprolol Succinate 25 mg XL Tab PO SCH (10:10)
[2017-06-15] MEDS: Magnesium Oxide 400 mg Tab UD PO SCH ×3 (10:11→17:50)
[2017-06-15 10:43] LABS: IRON 47 ug/dL (45-180)
--- NOTE | 2017-06-15 14:53 | PN ---
REASON FOR CONSULTATION: Followup cardiac evaluation admitted after a fall. The patient denies any chest pain or shortness of breath, any palpitation. OBJECTIVE: Sitting in bed, not in apparent distress. PHYSICAL EXAMINATION VITAL SIGNS: Temperature afebrile, heart rate 82, blood pressure 120/69. Orthostatic blood pressure reported as follows: 123/68 lying, sitting 140/68, standing 117/97. HEENT: PERRLA. Extraocular muscles intact. NECK: Supple. No carotid bruit or thyromegaly. LUNGS: Chest clear to auscultation. CARDIOPULMONARY: S1 and S2 regular. ABDOMEN: Soft. EXTREMITIES: Clubbing and cyanosis negative. LABORATORY DATA: Blood workup as follows: WBC 3.6, hemoglobin 6.3, hematocrit 30.4, platelet count 127. Chemistry shows sodium 134, potassium , chloride 100, carbon dioxide 27, anion gap of 11, BUN 7, creatinine 0.5. AST 113, ALT 64, alkaline phosphatase 168. Total protein 5.7, albumin 2.9. IMPRESSION: Protein calorie malnutrition, was not present during admission; anemia; hypokalemia; status post fall; mild dehydration on admission; history of alcohol abuse; coronary artery disease. RECOMMENDATION: Continue rehab, possible transfer to TCU in a day or two. History of fall, fracture of right orbital and medial maxillary sinus fracture, medical treatment recommended. The patient is on Medrol Bassem and antibiotic. Complete absence of alcohol abuse, emphasis made to the patient. Supplemental electrolytes. We will send the workup for anemia tomorrow including iron, TIBC and folic acid. We will follow with you. We will also send stool for guaiac to rule out bleed. Thank you Dr. Byron Waldrop in taking care of the patient. Jenifer Matthews MD
[2017-06-16 08:37] VITALS: BP 133/69; PULSE 74; TEMP 98; O2SAT 97
[2017-06-16] MEDS: Magnesium Oxide 400 mg Tab UD PO SCH ×2 (10:43→14:15)
[2017-06-16] MEDS: Metoprolol Succinate 25 mg XL Tab PO SCH (10:44)
--- NOTE | 2017-06-16 11:05 | PN ---
DATE: 06/16/2017 REASON FOR CONSULTATION: Followup cardiac evaluation, admitted after a fall. Denies any chest pain, shortness of breath, or any palpitations. SUBJECTIVE: The patient denies any chest pain, shortness of breath, or any palpitations. PHYSICAL EXAMINATION: GENERAL: Lying comfortable at the bed, getting ready for breakfast. VITAL SIGNS: Temperature afebrile, heart rate 74, and blood pressure 133/69. HEENT: PERRLA. Extraocular muscles intact. NECK: Supple. No carotid bruit. No thyromegaly. CHEST: Clear to auscultation. HEART: S1 and S2 regular. ABDOMEN: Soft. EXTREMITIES: Clubbing and cyanosis negative. LABORATORY DATA: Blood workup; WBC 3.6, hemoglobin 10.3, hematocrit 30.4, and platelet count 127,000. Chemistry shows sodium 134, potassium 3.7, chloride 100, carbon dioxide 27, anion gap 11, BUN 7, and creatinine 0.7. Iron 47, TIBC low, and iron saturation 28%. Vitamin B12 is 462. AST , ALT 64, alkaline phosphatase 168, total protein 5.7, albumin 2.9, and albumin-globulin ratio 1. ASSESSMENT: Protein-calorie malnutrition does not present on admission, hypokalemia, anemia, status post fall, mild dehydration on admission, gait disorder, history of coronary artery disease in the past, history of fracture after fall of orbital and right maxillary sinus, bruise in the face, history of coronary artery disease, and history of alcohol abuse. RECOMMENDATIONS: Continue metoprolol 25 mg daily, continue aspirin, continue atorvastatin, potassium supplemented yesterday, continue rehab, possible transfer to transitional care unit, discussed with the patient and will follow with you. Thank you Dr. Gee for providing me the opportunity in taking care in the Rash[facility] and we will follow with you. Jenifer Matthews MD
--- NOTE | 2017-06-17 03:17 | DS ---
HISTORY OF PRESENT ILLNESS: The patient is comfortable. She has no complaints of any pain. She was initially admitted to the hospital last fall. She had orbital and right sinus fracture. She is going to TCU for rehab. She does have history of drinking. She was advised to stop drinking. PHYSICAL EXAMINATION: VITAL SIGNS: Temperature is 97.4, pulse of 78, blood pressure 121/58 and respirations 20. GENERAL: The patient is lying in bed, flat, comfortable. HEENT: No oral lesion. Anicteric sclerae. Moist mucosa. NECK: No JVD, adenopathy, or thyromegaly. CARDIOVASCULAR: S1/S2, reg, no murmur. LUNGS: Clear to auscultation bilaterally. No wheeze, rales, or rhonchi. ABDOMEN: Bowel sounds are positive, soft, nontender and nondistended. EXTREMITIES: no cyanosis, clubbing or edema. Labs- reviewed Meds-reviewed ASSESSMENT: 1. Fall. 2. Gait dysfunction. 3. Right maxillary sinus fracture. 4. Right orbital fracture. 5. Hypomagnesemia. 6. Macular degeneration. 7. Dyslipidemia. 8. Coronary artery disease. 9. Hypertension. 10. Constipation. PLAN: The patient is going to continue with aspirin. He is on Lipitor for dyslipidemia. She is also on magnesium the patient has neurovascular hypertension, he is on metoprolol. The patient is on a heart healthy diet. The patient would like to be going to transitional care. Condition stable. Activities increase as tolerated. Juan Jose Washington MD [facility]
--- NOTE | 2017-06-17 10:15 | PQF MALNUT ---
This form is a permanent part of the medical record Dr. Matthews, As per 06/15 and 06/16 documentation of "protein-calorie malnutrition" does not present on admission requires type an d severity. Please see choices below. Thank you. Clarification of your documentation is requested to better reflect the severity of illness and intensity of treatment of your patient. Indicators present [] Cachexia (due to severe malnutrition) [] Albumin < 2.8 [] Decreased Pre-albumin [] Dietary Consult [] Provider documentation reflects BMI of: []_ [] Low serum proteins [] Documented weight loss [] Inability to consume adequate caloric intake [] Anorexic [] Other: [] Location in the medical record that reflects the above clinical findings: [] Treatment Provided: [] PHYSICIAN'S RESPONSE Based on your medical judgment of the clinical indicators outlined above, are you treating this patient for a known or suspected: Type of Malnutrition Severity [x] Mild [] Moderate [] Severe [x] Protein calorie [x] Mild [] Moderate [] severe [] Other, please indicate: []_ [] If Unable to Determine, please check the box, sign and date. Present On Admission (POA) Indicator: [] Present at the time of admission [x] Not present at the time of admission [] Clinically Undetermined In responding to this query, please exercise your independent professional judgment. The fact that a question is asked does not imply that any particular answer is desired or expected. Thank you for your clarification on this documentation. If you have any questions please call:[ ] * Thank you, [ ][facility] clinic physician director Malnutrition Malnutrition results from an imbalance between the body's intake of nutrients and the body's use of nutrients to fuel energy expenditure. Malnutrition may be described as mild, moderate or severe. There are variations in clinical indicators, lab values and risk factors with each type and degree. When reviewing the nutritional status of the client, the entire clinical picture should be assessed and taken into consideration rather than a focus on a single laboratory value. Mild Malnutrition: patient's weight is noted at 85-95% of normal body weight; BMI 18-18.9; serum albumin 3.0-3.4; total lymphocyte count [id number]. Moderate Malnutrition: patient's weight is noted at 75-85% of normal body weight ; BMI 16-17.9; serum albumin 2.4-3.0; total lymphocyte count 800-1500. Severe Malnutrition: patient's weight is noted at <75% of normal body weight, BMI <16, serum albumin <2.4, total lymphocyte count <800, abnormally low VLDL/ LDL levels, creatinine <0.6, BUN <8, cholesterol <160. Other clinical indicators include: loss of subq fat, muscle wasting of the extremities, skin lesions, decubitus ulcers, hair loss, lethargy, constipation, decreased pulse/ respiratory rates, relative hypotension, hepatomegaly d/t fat infiltration, poor wound healing.~~~~~~ Risk: poor intake d/t food avoidance or NPO status for >7 days, protracted nutritional losses from malabsorption states, hypermetabolic state such as sepsis, prolonged fever, extensive trauma or rahman, alcohol/drug abuse, advanced age, CKD, trouble chewing or swallowing, some medications, depression/ social isolation, special diets such as low protein Treatment: dietary consultation, protein-calorie dietary supplementation, daily weights, PEG tube, psychiatric consultation, appetite stimulants (Megace). [employer] Principles of Internal Medicine, 17th edition, chapters 9, 72 and 234. The [employer] Nutritional Support Core Curriculum, 2007 MTDD
== END 2017-06-16 15:52 | DRG 641 ==
LOC: ED 21:30 → ERH 22:22 → 5RSO 06-14 02:35
PROVIDERS: ADMIT Internal Medicine Nephrology; ATTEND Internal Medicine Nephrology
DX: E86.0 Dehydration (principal); S02.40CA Maxillary fracture, right side, initial encounter for closed fracture; S02.81XA Fracture of other specified skull and facial bones, right side, initial encounter for closed fracture; E44.1 Mild protein-calorie malnutrition; I11.0 Hypertensive heart disease with heart failure; I50.9 Heart failure, unspecified; D64.9 Anemia, unspecified; R27.0 Ataxia, unspecified; E83.42 Hypomagnesemia; H35.30 Unspecified macular degeneration; E78.5 Hyperlipidemia, unspecified; I25.10 Atherosclerotic heart disease of native coronary artery without angina pectoris; K59.00 Constipation, unspecified; E87.6 Hypokalemia; F10.20 Alcohol dependence, uncomplicated; Y90.3 Blood alcohol level of 60-79 mg/100 ml; R29.6 Repeated falls; W19.XXXA Unspecified fall, initial encounter; Y92.9 Unspecified place or not applicable; Z79.82 Long term (current) use of aspirin; Z68.22 Body mass index [BMI] 22.0-22.9, adult

== ENCOUNTER 2017-06-16 15:52 | Inpatient (IN) | payer OTHER ==
[2017-06-16 16:45] VITALS: BMI 20.7
[2017-06-16] MEDS: Magnesium Oxide 400 mg Tab UD PO SCH (17:29)
[2017-06-16] MEDS ORDERED: Pneumococcal 23-Valent Vaccine IM ONE (18:09)
--- NOTE | 2017-06-17 07:07 | PN ---
DATE: 06/17/2017 SUBJECTIVE: The patient has no complaints of any chest pain or shortness of breath. No headaches or dizziness. She had coming from the hospital to the transitional care unit for . She had a fall. She also had been drinking. I reviewed the initial H and P and agree with this. PHYSICAL EXAMINATION VITAL SIGNS: Temperature is 97.8, pulse of 84, blood pressure 130/73, and respirations 15. GENERAL: The patient is lying in bed, flat, comfortable. HEENT: No oral lesion. Anicteric sclerae. Moist mucosa. NECK: No JVD, adenopathy, or thyromegaly. CARDIOVASCULAR: S1 and S2, regular. No murmurs, rubs, or gallops. LUNGS: Clear to auscultation bilaterally. No wheeze, rales, or rhonchi. ABDOMEN: Bowel sounds are positive, soft, nontender and nondistended. EXTREMITIES: No cyanosis, clubbing or edema. ASSESSMENT: 1. Fall. 2. Gait dysfunction. 3. Right maxillary sinus fracture. 4. Right orbital fracture. 5. Hypomagnesemia. 6. Macular degeneration. 7. Dyslipidemia. 8. Coronary artery disease. 9. Constipation. PLAN: The patient is going to be on aspirin. She is going to continue on Lipitor for dyslipidemia. She is on magnesium for replacement. She is on Norvasc for hypertension. She is going to be on metoprolol. She is on a heart healthy diet. I will put her on multivitamins. also add calcium and vitamin D. Juan Jose Washington MD
[2017-06-17] MEDS: Magnesium Oxide 400 mg Tab UD PO SCH ×3 (09:36→17:58)
[2017-06-17] MEDS: Multivitamin Therapeutic Tab PO SCH (09:39)
[2017-06-17] MEDS: Calcium-Vit D 250 mg-125 Units Tab UD PO SCH (09:39)
[2017-06-17] MEDS: Metoprolol Succinate 25 mg XL Tab PO SCH (09:40)
--- NOTE | 2017-06-17 14:24 | CON ---
SERVICE: Cardiology. REASON FOR THE CONSULTATION: Cardiology evaluation and followup history of coronary artery disease. BRIEF CLINICAL HISTORY: This is an 87-year-old female, old patient of Dr. Munguia with the past medical history significant for hypertension, hyperlipidemia, coronary artery disease, history of alcohol abuse, who fell down and sustained trauma on Wednesday with bruised face, all over the body, and fracture of the right maxillary and orbital sinus, who was seen on Wednesday, was sent home with prednisone and antibiotic. The patient developed later on diarrhea and felt very weak, so again admitted here. Denies any chest pain, shortness of breath. The patient initially treated in the acute care. Now, the patient is in the transitional care unit for the continuity of care. Denies any chest pain, shortness of breath, or any palpitation. PAST MEDICAL HISTORY: Significant for coronary artery disease, hypertension, hyperlipidemia, and history of hyperkalemia in the past. PERSONAL HISTORY: Denies any history of smoking, but alcohol abuse heavy in the past, now claims to have cut down. ALLERGIES: NO KNOWN DRUG ALLERGY. CURRENT MEDICATION: The patient at home was taking Crestor, metoprolol 50 mg twice, amlodipine, Toprol X, and Nexium. REVIEW OF SYSTEMS: As per HPI. PHYSICAL EXAMINATION: As follows: GENERAL: Height of the patient is 5 feet 9 inches, weight of the patient 140 pound, body mass 20.8 kg/m2. VITAL SIGNS: Temperature afebrile, heart rate 82, blood pressure 102/64. HEENT: PERRLA. Extraocular muscles are intact. NECK: Supple. No carotid bruits or thyromegaly. LUNGS: Chest clear to auscultation. HEART: S1 and S2. Regular. ABDOMEN: Soft. EXTREMITIES: Clubbing and cyanosis negative. LABORATORY DATA: Blood workup on 06/15/2017 shows WBC 3.6, hemoglobin 10.3, hematocrit 30.4, platelet count 127. Chemistry shows sodium 134, potassium 3.7, chloride 100, carbon dioxide 27, anion gap of 11, BUN 7, creatinine 0.7, total bilirubin 0.7. AST 113, ALT 64, alkaline phosphatase 168, total protein 5.7, albumin 2.9, albumin-globulin ratio 1. IMPRESSION: Protein-calorie malnutrition which is mild as albumin was 2.9, which was not present on admission. Status post fall, anemia, history of alcohol abuse, history of coronary artery disease, history of fracture of orbital and maxillary sinus after a fall, hypertension, hyperlipidemia. Repeat blood pressure did not show any orthostatic changes. RECOMMENDATION: Continue rehab, continue baseline medication that include atorvastatin 20 mg daily, Baby Aspirin 81 mg daily, amlodipine and multivitamin, and metoprolol succinate 25 mg daily. We will repeat the blood workup in the morning. Continue rehab. Thank you Dr. rOourke for providing me the opportunity in taking care of the patient. Jenifer Matthews MD cc:
[2017-06-18 08:27] LABS: BASO # 0.02 K/mm3 (0.0-2.0); BASO % 0.5 % (0.0-3.0); EOS # 0.1 (0.0-0.7); EOS % 1.2 % (1.5-5.0); GRAN # 2.38 (1.4-6.5); GRAN % 55.1 % (50.0-68.0); HEMOGLOBIN 10.7 gm/dL (12.0-16.0); LYMPH # 1.6 (1.2-3.4); LYMPH % 37.4 % (22.0-35.0); MEAN CELL VOLUME 99.4 fL (80.0-105.0); MEAN CORPUSCULAR HEMOGLOBIN 33.8 pg (25.0-35.0); MEAN PLATELET VOLUME 9.5 fl (7.0-11.0); MONO # 0.3 (0.1-0.6); MONO % 5.8 % (1.0-6.0); PLATELET COUNT 137 10^3/uL (120.0-450.0); RBC 3.17 10^6/uL (3.5-6.1); RED CELL DISTRIBUTION WIDTH 15.9 % (11.5-14.5); WHITE BLOOD COUNT 4.3 10^3/ul (4.5-11.0)
[2017-06-18 08:35] LABS: ALB/GLOB RATIO 1.3 (1.1-1.8); ALBUMIN 3.4 g/dL (3.0-4.8); ALT/SGPT 71 U/L (7-56); AST/SGOT 99 U/L (15-39); BLOOD UREA NITROGEN 8 mg/dL (7-21); CALCIUM 8.9 mg/dL (8.4-10.5); GFR AFRICAN-AMERICAN > 60; GFR NON-AFRICAN AMERICAN > 60
[2017-06-18] MEDS: Metoprolol Succinate 25 mg XL Tab PO SCH (08:45)
[2017-06-18] MEDS: Magnesium Oxide 400 mg Tab UD PO SCH ×3 (10:26→17:14)
[2017-06-18] MEDS: Calcium-Vit D 250 mg-125 Units Tab UD PO SCH (10:27)
[2017-06-18] MEDS: Multivitamin Therapeutic Tab PO SCH (10:28)
--- NOTE | 2017-06-18 13:07 | PN ---
DATE: 06/18/2017 REASON FOR THE CONSULTATION: Follow up cardiac evaluation and followup in transitional care unit, history of coronary artery disease. SUBJECTIVE: The patient denies any chest pain, shortness of breath, or any palpitations. OBJECTIVE: GENERAL: Lying flat on the bed, not in apparent distress; bruise on the face and the neck. VITAL SIGNS: Temperature afebrile, heart rate 87, and blood pressure 112/62. HEENT: PERRLA intact. NECK: Supple. No carotid bruit. No thyromegaly. CHEST: Clear to auscultation. HEART: S1 and S2 regular. ABDOMEN: Soft. EXTREMITIES: Clubbing and cyanosis negative. LABORATORY DATA: Blood workup as follows; WBC 4.3, hemoglobin 10.7, hematocrit 31.5, and platelet count 137. Chemistry shows sodium 134, potassium 4.1, chloride 99, carbon dioxide 29, anion gap of 10, BUN 8, and creatinine 0.6. Total protein 5.9, albumin 3.4, and albumin-globulin ratio 1.3. IMPRESSION: An 87-year-old female with past medical history significant for coronary artery disease, history of alcohol abuse, admitted after a fall and fracture of orbital and right maxillary bone, history of protein-calorie malnutrition, which was not present on admission, status post fall; history of alcohol abuse, history of coronary artery disease, hypertension, and hyperlipidemia. RECOMMENDATION: Continue rehab; continue baseline medication including atorvastatin, aspirin, amlodipine. Continue metoprolol succinate 25 mg twice a day. Repeat blood workup today. Electrolytes are within normal limits. Mild anemic, we will add iron and multivitamin preparation. We will follow with you. Thank you Dr. Orourke for providing me the opportunity in taking care of the patient. Jenifer Matthews MD
[2017-06-18 19:27] LABS: URINE BILIRUBIN NEGATIVE (NEGATIVE); URINE BLOOD MODERATE (NEGATIVE); URINE GLUCOSE (UA) NEGATIVE (NEGATIVE); URINE LEUKOCYTE ESTERASE LARGE Leu/uL (NEGATIVE); URINE NITRATE POSITIVE (NEGATIVE); URINE PROTEIN 30 mg/dL (<30 mg/dL); URINE UROBILINOGEN 0.2 E.U./dL (<1 E.U./dL)
[2017-06-18 19:31] LABS: URINE APPEARANCE TURBID (CLEAR); URINE COLOR YELLOW (YELLOW)
[2017-06-18 19:42] LABS: URINE BACTERIA MANY (NEG); URINE WBC 25 - 30 /hpf (0-6)
[2017-06-19] MEDS: Multivitamin Therapeutic Tab PO SCH (08:12)
[2017-06-19] MEDS: Metoprolol Succinate 25 mg XL Tab PO SCH (08:13)
[2017-06-19] MEDS: Calcium-Vit D 250 mg-125 Units Tab UD PO SCH (10:50)
[2017-06-19] MEDS: Magnesium Oxide 400 mg Tab UD PO SCH ×3 (10:50→17:35)
[2017-06-19 17:08] LABS: PH,URINE 6.5 (4.7-8.0); URINE BILIRUBIN NEGATIVE (NEGATIVE); URINE BLOOD SMALL (NEGATIVE); URINE GLUCOSE (UA) NEGATIVE (NEGATIVE); URINE LEUKOCYTE ESTERASE LARGE Leu/uL (NEGATIVE); URINE NITRATE NEGATIVE (NEGATIVE); URINE PROTEIN TRACE mg/dL (<30 mg/dL); URINE UROBILINOGEN 0.2 E.U./dL (<1 E.U./dL)
[2017-06-19 17:14] LABS: URINE APPEARANCE SL CLOUDY (CLEAR); URINE COLOR YELLOW (YELLOW)
[2017-06-19 17:22] LABS: URINE BACTERIA MOD (NEG); URINE WBC 25 - 30 /hpf (0-6)
[2017-06-20] MEDS: Multivitamin Therapeutic Tab PO SCH (08:09)
[2017-06-20] MEDS: Metoprolol Succinate 25 mg XL Tab PO SCH (08:09)
[2017-06-20] MEDS: Magnesium Oxide 400 mg Tab UD PO SCH ×3 (09:49→17:20)
[2017-06-20] MEDS: Calcium-Vit D 250 mg-125 Units Tab UD PO SCH (09:50)
--- NOTE | 2017-06-21 07:42 | PN ---
DATE: 06/21/2017 SUBJECTIVE: The patient has no complaints of any chest pain. No shortness of breath. No headaches or dizziness. PHYSICAL EXAMINATION: VITAL SIGNS: Temperature is 98.1, pulse is 78, blood pressure 129/60, and respirations 18. GENERAL: The patient is lying in bed, flat, comfortable. HEENT: No oral lesion. Anicteric sclerae. Moist mucosa. NECK: No JVD, adenopathy, or thyromegaly. CARDIOVASCULAR: S1 and S2, regular. No murmurs, rubs, or gallops. LUNGS: Clear to auscultation bilaterally. No wheeze, rales, or rhonchi. ABDOMEN: Bowel sounds are positive, soft, nontender and nondistended. EXTREMITIES: No cyanosis, clubbing or edema. ASSESSMENT: 1. Fall. 2. Gait dysfunction. 3. Right maxillary sinus fracture. 4. Right orbital fracture. 5. Hypomagnesemia. 6. Macular degeneration. 7. Dyslipidemia. 8. Coronary artery disease. 9. Constipation. PLAN: The patient is currently comfortable; is on Lipitor for dyslipidemia, magnesium replacement. The patient is on amlodipine for hypertension. The patient is receiving metoprolol. She is on a heart healthy diet. The patient is followup by Dr. Matthews. She continues to well with physical therapy. Juan Jose Washington MD
[2017-06-21] MEDS: Multivitamin Therapeutic Tab PO SCH (08:08)
[2017-06-21] MEDS: Metoprolol Succinate 25 mg XL Tab PO SCH (08:08)
[2017-06-21] MEDS: Magnesium Oxide 400 mg Tab UD PO SCH ×3 (09:25→17:08)
[2017-06-21] MEDS: Calcium-Vit D 250 mg-125 Units Tab UD PO SCH (09:25)
[2017-06-21] MEDS: Cefepime 1gm in NS 100ml 1 GM/100 ML BAG IVPB SCH ×2 (18:06→21:14)
--- NOTE | 2017-06-21 18:17 | PN ---
DATE: 06/21/2017 REASON FOR CONSULTATION: Followup cardiac evaluation. Continues to be coronary artery disease. SUBJECTIVE: The patient is getting rehab. Denies any chest pain, shortness of breath, or any palpitation. PHYSICAL EXAMINATION: GENERAL: Sitting in rehab room, doing bicycling, not in apparent distress. VITAL SIGNS: As follows: Temperature afebrile, heart rate 91, and blood pressure 110/64. HEENT: PERRLA. Extraocular muscles are intact. NECK: Supple. No carotid bruits or thyromegaly. HEART: S1 and S2. Regular. CHEST: Clear to auscultation. ABDOMEN: Soft. EXTREMITIES: Clubbing and cyanosis negative. LABORATORY DATA: Blood workup as follows: WBC 4.3, hemoglobin 10.3, hematocrit 31.5, and platelet count 137,000. Chemistry shows sodium 134, potassium 4.1, chloride 99, carbon dioxide 29, anion gap of 10, BUN 8, creatinine 0.6, AST 99, ALT 70, alkaline phosphatase 158, total protein 5.9, albumin 3.4, and albumin-globulin ratio 2.6. IMPRESSION: An 87-year-old female with past medical history significant for alcohol abuse, coronary artery disease, status post fall, right orbital fracture, maxillary sinus fracture, gait instability, hypomagnesemia, history of macular degeneration, and dyslipidemia admitted after a fall. Now, the patient is getting rehabilitation. Denies any chest pain, shortness of breath, or any palpitation. RECOMMENDATIONS: Continue rehab. Continue baseline medication including atorvastatin, aspirin, and amlodipine. Continue metoprolol succinate 25 mg twice a day. Repeat blood workup. Electrolytes supplement as needed. Complete abstinence of alcohol. Emphasis made on the patient to complete abstinence of alcohol. Continue multivitamin and iron preparation. We will repeat blood workup, SMA-7 and magnesium. Continue rehab. Discharge planning. Discussed with the patient. We will follow with you. Thank you Dr. Gee for providing me the opportunity in taking care of the patient. Jenifer Matthews MD
[2017-06-22 06:24] LABS: ALB/GLOB RATIO 1.1 (1.1-1.8); ALBUMIN 2.9 g/dL (3.0-4.8); ALT/SGPT 62 U/L (7-56); AST/SGOT 75 U/L (15-39); BLOOD UREA NITROGEN 10 mg/dL (7-21); CALCIUM 8.5 mg/dL (8.4-10.5); GFR AFRICAN-AMERICAN > 60; GFR NON-AFRICAN AMERICAN > 60; MAGNESIUM 2.1 mg/dL (1.7-2.2)
[2017-06-22 06:43] LABS: HEMOGLOBIN 9.7 g/dL (12.0-16.0); MEAN CELL VOLUME 99.3 fl (80.0-105.0); MEAN CORPUSCULAR HEMOGLOBIN 33.7 pg (25.0-35.0); MEAN CORPUSCULAR HGB CONC 33.9 g/dl (31.0-37.0); MEAN PLATELET VOLUME 9.4 fl (7.0-11.0); RBC 2.88 10^6/uL (3.5-6.1); RED CELL DISTRIBUTION WIDTH 15.5 % (11.5-14.5); WHITE BLOOD COUNT 4.3 10^3/ul (4.5-11.0)
[2017-06-22] MEDS: Multivitamin Therapeutic Tab PO SCH (08:41)
[2017-06-22] MEDS: Metoprolol Succinate 25 mg XL Tab PO SCH (08:41)
[2017-06-22] MEDS: Magnesium Oxide 400 mg Tab UD PO SCH ×3 (09:28→17:10)
[2017-06-22] MEDS: Cefepime 1gm in NS 100ml 1 GM/100 ML BAG IVPB SCH (09:28)
[2017-06-22] MEDS: Calcium-Vit D 250 mg-125 Units Tab UD PO SCH (09:29)
--- NOTE | 2017-06-22 15:07 | PN ---
DATE: 06/22/2017 REASON FOR CONSULTATION: Followup cardiac evaluation, continuity of care at transitional care unit. SUBJECTIVE: Denies any chest pain. Denies any short of breath, but complains of frequent urination. OBJECTIVE: GENERAL: Lying in the bed comfortably not in apparent distress. Examination as follows. VITAL SIGNS: Temperature afebrile, heart rate 90, blood pressure 99/63. HEENT: PERRLA. Extraocular muscles intact. NECK: Supple. No carotid bruit or thyromegaly. CHEST: Clear to auscultation. HEART: S1 and S2 regular. ABDOMEN: Soft. EXTREMITIES: Clubbing and cyanosis negative. LABORATORY DATA: Blood workup as follows: WBC 4.3, hemoglobin 9.0, hematocrit 28.6, and platelet count 132. Chemistry shows sodium 134, potassium 3.7, chloride 100, carbon dioxide 30, anion gap 30, BUN 10, creatinine 0.5, AST 75, ALT 62, alkaline phosphatase 136, total protein 5.3, albumin 2.9. IMPRESSION: Protein calorie malnutrition, which was not present on admission is mild; anemia; deconditioning of the body, status post fall; history of alcohol abuses; coronary artery disease; frequent urination, rule out urinary tract infection. RECOMMENDATIONS: Send urine for urinalysis. The patient' urine culture is positive fir E. coli, on IV antibiotic. Continue amlodipine, continue antibiotic for urinary tract infection, continue iron preparation, continue multivitamin, continue atorvastatin, increase nutrition support. We will add supplement dietary. We will follow with you. Continue rehab. Thank you Dr. Gee for the providing me the opportunity in taking care of Rashida Red. Jenifer Matthews MD
--- NOTE | 2017-06-22 15:38 | CP.PCM.CON ---
History of Present Illness - History of Present Illness History of Present Illness: 87 year old female with PMH of dyslipidemia, history of colitis, macular degeneration, HTN, chronic CHF, history of UTI with Klebsiella, history of frequent falls was initially admitted in [facility] because of a fall. She was found to have facial fractures and has been managed conservatively. She is now transferred to [facility] for continued medical therapy and physical rehabilitation. While in [facility], she started complaining of increased urinary frequency and is found to have bacteria in the urine. Infectious Diseases consult is requested to further evaluate and manage. Currently the patient denies fever or chills, no nausea or vomiting, no chest pain, no SOB, no headache or dizziness, no abdominal pain, no flank pain, no diarrhea. Review of Systems - Review of Systems All systems: reviewed and no additional remarkable complaints except (as per HPI ) Past Patient History - Infectious Disease Hx of Infectious Diseases: None - Tetanus Immunizations Tetanus Immunization: Unknown - Past Medical History & Family History Past Medical History?: Yes - Past Social History Smoking Status: Never Smoked - CARDIAC Hx Cardiac Disorders: Yes Hx Congestive Heart Failure: Yes Hx Hypertension: Yes - PULMONARY Hx Respiratory Disorders: No - NEUROLOGICAL Hx Neurological Disorder: No - HEENT Hx HEENT Problems: Yes Hx Macular Degeneration: Yes - RENAL Hx Chronic Kidney Disease: No - ENDOCRINE/METABOLIC Hx Endocrine Disorders: No - HEMATOLOGICAL/ONCOLOGICAL Hx Blood Disorders: No - INTEGUMENTARY Hx Dermatological Problems: No Hx Basil Cell: Yes (right forehead) - MUSCULOSKELETAL/RHEUMATOLOGICAL Hx Falls: Yes (recent frequent, legs "give out") - GASTROINTESTINAL Hx Gastrointestinal Disorders: Yes (hx colitis) - GENITOURINARY/GYNECOLOGICAL Hx Reproductive Disorders: No (hx fibroid/hyst) - PSYCHIATRIC Hx Psychophysiologic Disorder: No Hx Depression: No Hx Emotional Abuse: No Hx Physical Abuse: No - SURGICAL HISTORY Hx Surgeries: Yes Hx Hysterectomy: Yes (fibroid) - ANESTHESIA Hx Anesthesia: Yes Hx Anesthesia Reactions: No Hx Malignant Hyperthermia: No Meds Allergies/Adverse Reactions: Allergies Allergy/AdvReac Type Severity Reaction Status Date / Time No Known Allergies Allergy Verified 05/11/12 08:24 - Medications Medications: Current Medications Amlodipine Besylate (Norvasc) 5 mg PO DAILY [facility] PRN Reason: Protocol Last Admin: 06/21/17 09:25 Dose: 5 mg Aspirin (Ecotrin) 81 mg PO 0800 [facility] PRN Reason: Protocol Last Admin: 06/21/17 08:08 Dose: 81 mg Atorvastatin Calcium (Lipitor) 20 mg PO DIN [facility] PRN Reason: Protocol Last Admin: 06/21/17 17:07 Dose: 20 mg Calcium/Vitamin D (Oscal-D 250 Mg-125 Units Tab) 1 tab PO DAILY [facility] Last Admin: 06/21/17 09:25 Dose: 1 tab Ferrous Sulfate (Feosol) 324 mg PO TID [facility] Last Admin: 06/21/17 17:08 Dose: 324 mg Cefepime HCl (Maxipime 1gm) 1 gm in 100 mls @ 100 mls/hr IVPB Q12 [facility] PRN Reason: Protocol Stop: 06/28/17 18:01 Last Admin: 06/21/17 21:14 Dose: Not Given Magnesium Oxide (Mag-Ox) 400 mg PO TID [facility] PRN Reason: Protocol Last Admin: 06/21/17 17:08 Dose: 400 mg Metoprolol Succinate (Toprol Xl) 25 mg PO 0800 [facility] PRN Reason: Protocol Last Admin: 06/21/17 08:08 Dose: 25 mg Multivitamins (Thera Tab) 1 tab PO 0800 [facility] Last Admin: 06/21/17 08:08 Dose: 1 tab Physical Exam - Constitutional Appears: Non-toxic, No Acute Distress - Head Exam Head Exam: NORMAL INSPECTION - ENT Exam ENT Exam: Mucous Membranes Moist - Neck Exam Neck exam: Negative for: Lymphadenopathy, Meningismus - Respiratory Exam Respiratory Exam: Decreased Breath Sounds - Cardiovascular Exam Cardiovascular Exam: +S1, +S2 - GI/Abdominal Exam GI & Abdominal Exam: Soft. absent: Tenderness Results - Vital Signs Recent Vital Signs: Last Vital Signs Temp 97.7 F 06/21/17 10:00 Pulse 91 H 06/21/17 10:00 Resp 18 06/21/17 10:00 BP 110/64 06/21/17 10:00 Pulse Ox 99 06/21/17 10:00 - Labs Result Diagrams: 06/22/17 05:35 06/22/17 05:35 Assessment & Plan - Assessment and Plan (Free Text) Plan: Assessment UTI with E. coli, probably lower tract Facial fractures sustained after a fall history right lower quadrant intra-abdominal abscess, S/P IR-guided drainage history of urinary tract infection dyslipidemia history of colitis macular degeneration HTN chronic CHF history of frequent falls Plan was on Cefepime and will change to Cefazolin; target 5-7 days of therapy (day 2)
--- NOTE | 2017-06-22 17:29 | CP.PCM.PN ---
Subjective - Date & Time of Evaluation Date of Evaluation: 06/19/17 Time of Evaluation: 12:00 - Subjective Subjective: Denies any pain. No events overnight. No chest pain. Objective - Vital Signs/Intake and Output Vital Signs (last 24 hours): Temp Pulse Resp BP Pulse Ox 98.2 F 63 14 106/62 92 L 06/22/17 16:10 06/22/17 16:10 06/22/17 16:10 06/22/17 16:10 06/22/17 16:10 - Medications Medications: Current Medications Amlodipine Besylate (Norvasc) 5 mg PO DAILY [facility] PRN Reason: Protocol Last Admin: 06/22/17 09:34 Dose: Not Given Aspirin (Ecotrin) 81 mg PO 0800 [facility] PRN Reason: Protocol Last Admin: 06/22/17 08:41 Dose: 81 mg Atorvastatin Calcium (Lipitor) 20 mg PO DIN [facility] PRN Reason: Protocol Last Admin: 06/22/17 17:13 Dose: 20 mg Calcium/Vitamin D (Oscal-D 250 Mg-125 Units Tab) 1 tab PO DAILY [facility] Last Admin: 06/22/17 09:29 Dose: 1 tab Ferrous Sulfate (Feosol) 324 mg PO TID [facility] Last Admin: 06/22/17 17:10 Dose: 324 mg Cefazolin Sodium (Ancef 1gm In Ns) 1 gm in 100 mls @ 100 mls/hr IVPB Q8 [facility] PRN Reason: Protocol Magnesium Oxide (Mag-Ox) 400 mg PO TID [facility] PRN Reason: Protocol Last Admin: 06/22/17 17:10 Dose: 400 mg Metoprolol Succinate (Toprol Xl) 25 mg PO 0800 [facility] PRN Reason: Protocol Last Admin: 06/22/17 08:41 Dose: Not Given Multivitamins (Thera Tab) 1 tab PO 0800 [facility] Last Admin: 06/22/17 08:41 Dose: 1 tab - Labs Labs: 06/22/17 05:35 06/22/17 05:35 - Constitutional Appears: Well, Non-toxic - Head Exam Head Exam: ATRAUMATIC, NORMAL INSPECTION - Eye Exam Eye Exam: Normal appearance Pupil Exam: NORMAL ACCOMODATION - ENT Exam ENT Exam: Mucous Membranes Moist, Normal Exam - Neck Exam Neck Exam: Normal Inspection - Respiratory Exam Respiratory Exam: Clear to Ausculation Bilateral, NORMAL BREATHING PATTERN - Cardiovascular Exam Cardiovascular Exam: +S1, +S2 - Back Exam Back Exam: NORMAL INSPECTION - Neurological Exam Neurological Exam: Awake, Oriented x3 - Psychiatric Exam Psychiatric exam: Normal Affect - Skin Skin Exam: Normal Color, Warm Assessment and Plan (1) Anemia Status: Acute (2) Leukopenia Assessment & Plan: monitior blood counts. WC improving. Status: Acute (3) At high risk for falls Status: Acute (4) Ataxia Status: Acute (5) Hypokalemia Status: Acute (6) Hyponatremia Status: Acute (7) Scalp laceration Status: Acute (8) Syncope Status: Acute - Assessment and Plan (Free Text) Plan: Continue current meds. No pain. Blood counts stable. ID following. Discussed with staff nurse.
[2017-06-22] MEDS: ceFAZolin 1 gm in NS 1 GM/100 ML BAG IVPB SCH (21:19)
[2017-06-23] MEDS: ceFAZolin 1 gm in NS 1 GM/100 ML BAG IVPB SCH (05:28)
[2017-06-23] MEDS: Multivitamin Therapeutic Tab PO SCH (09:26)
[2017-06-23] MEDS: Metoprolol Succinate 25 mg XL Tab PO SCH (09:28)
[2017-06-23 11:59] VITALS: RESP 20; TEMP 97.5; O2SAT 95
[2017-06-23] MEDS: Calcium-Vit D 250 mg-125 Units Tab UD PO SCH (12:05)
--- NOTE | 2017-06-23 13:43 | CP.PCM.PN ---
Subjective - Date & Time of Evaluation Date of Evaluation: 06/23/17 Time of Evaluation: 08:05 - Subjective Subjective: Comfortable, not in distress, afebrile, no dysuria currently. Objective - Vital Signs/Intake and Output Vital Signs (last 24 hours): Temp Pulse Resp BP Pulse Ox 97.5 F L 100 H 20 128/70 95 06/23/17 11:58 06/23/17 11:58 06/23/17 11:58 06/23/17 11:58 06/23/17 11:58 - Medications Medications: Current Medications Amlodipine Besylate (Norvasc) 5 mg PO DAILY [facility] PRN Reason: Protocol Last Admin: 06/23/17 09:18 Dose: 5 mg Ampicillin (Ampicillin) 500 mg PO QID [facility] PRN Reason: Protocol Aspirin (Ecotrin) 81 mg PO 0800 [facility] PRN Reason: Protocol Last Admin: 06/23/17 09:17 Dose: 81 mg Atorvastatin Calcium (Lipitor) 20 mg PO DIN [facility] PRN Reason: Protocol Last Admin: 06/22/17 17:13 Dose: 20 mg Calcium/Vitamin D (Oscal-D 250 Mg-125 Units Tab) 1 tab PO DAILY [facility] Last Admin: 06/22/17 09:29 Dose: 1 tab Ferrous Sulfate (Feosol) 324 mg PO TID [facility] Last Admin: 06/23/17 09:17 Dose: 324 mg Metoprolol Succinate (Toprol Xl) 25 mg PO 0800 [facility] PRN Reason: Protocol Last Admin: 06/23/17 09:28 Dose: 25 mg Multivitamins (Thera Tab) 1 tab PO 0800 [facility] Last Admin: 06/23/17 09:26 Dose: 1 tab - Labs Labs: 06/22/17 05:35 06/22/17 05:35 - Constitutional Appears: Non-toxic, No Acute Distress - Head Exam Head Exam: NORMAL INSPECTION - ENT Exam ENT Exam: Mucous Membranes Moist - Neck Exam Neck Exam: absent: Meningismus - Respiratory Exam Respiratory Exam: Decreased Breath Sounds - Cardiovascular Exam Cardiovascular Exam: +S1, +S2 - GI/Abdominal Exam GI & Abdominal Exam: Soft. absent: Tenderness Assessment and Plan - Assessment and Plan (Free Text) Plan: Assessment UTI with E. coli, probably lower tract Facial fractures sustained after a fall history right lower quadrant intra-abdominal abscess, S/P IR-guided drainage history of urinary tract infection dyslipidemia history of colitis macular degeneration HTN chronic CHF history of frequent falls Plan has been switched to Ampicillin from Cefazolin; target 5-7 days of therapy (day 3)
--- NOTE | 2017-06-23 20:11 | PN ---
DATE: 06/23/2017 LOCATION: The patient is in room 319, bed 1. REASON FOR CONSULTATION: Followup, history of fall, coronary artery disease. SUBJECTIVE: The patient sitting in chair without any chest pain, shortness of breath or palpation. PHYSICAL EXAMINATION: VITAL SIGNS: Blood pressure 128/70, respirations 20, pulse 100, temperature 97.5. HEENT: Head is normocephalic. Eyes: Pupils normal. Conjunctivae slightly pale. NECK: JVP low. Carotid equal. Thorax AP diameter normal. LUNGS: Clear. CARDIOVASCULAR: S1 and S2. ABDOMEN: Soft, nontender. No organomegaly. EXTREMITIES: No clubbing. No cyanosis. SKIN: The patient has black and blue lara on the face because of fall. LABORATORY DATA: WBC 4.3, hemoglobin 9.7, hematocrit 28.6, platelet 152. Sodium 134, potassium 3.7, BUN 10 and creatinine 0.5. AST 75, ALT 62, alkaline phosphatase is 136. Total protein 5.7, albumin 2.9. DIAGNOSES: Protein calorie malnutrition which was not present on admission, status post fall with history of alcohol abuse, coronary artery disease, frequency urine, urinary tract infection and deconditioning. PLAN: The patient is on ampicillin 500 mg p.o. q.i.d., aspirin 81 mg daily, ferrous sulfate 324 mg b.i.d., Lipitor 20 daily, amlodipine 5 daily, Toprol XL 25 mg daily. We will continue present therapy and continue physical therapy. We will follow with you. Jenifer Munguia MD
--- NOTE | 2017-06-24 05:59 | DS ---
DATE: 06/23/2017 HISTORY OF PRESENT ILLNESS: The patient has no complaints of any chest pain or shortness of breath. She has been doing well with physical therapy. She has had a fall. She does have history of drinking and was advised to quit. She is comfortable with no pain. Her ecchymotic areas on her face is improving from the fall. PHYSICAL EXAMINATION: VITAL SIGNS: Temperature is 98.2, pulse is 63, blood pressure 106/62 and respirations is 14. GENERAL: The patient is lying in bed, flat, comfortable. HEENT: No oral lesion. Anicteric sclerae. Moist mucosa. NECK: No JVD, adenopathy, or thyromegaly. CARDIOVASCULAR: S1 and S2, regular. No murmurs, rubs, or gallops. LUNGS: Clear to auscultation bilaterally. No wheeze, rales, or rhonchi. ABDOMEN: Bowel sounds are positive, soft, nontender and nondistended. EXTREMITIES: No cyanosis, clubbing or edema. LABORATORY DATA: White count of 4.3. ASSESSMENT: 1. Fall. 2. Gait dysfunction. 3. Right maxillary sinus fracture. 4. Right orbital fracture. 5. Hypomagnesemia. 6. Macular degeneration. 7. Dyslipidemia. 8. Coronary artery disease. 9. Constipation. The patient is on iron supplementation. She has been receiving magnesium replacement. Magnesium and phosphorus levels have been normal. She did have mildly elevated liver functions with most likely secondary to her drinking. She is on Norvasc for hypertension. She is also going to continue metoprolol, she is on heart healthy diet. CONDITION: Stable. ACTIVITIES: Increase as tolerated. Juan Jose Washington MD
[2017-06-24] MEDS: Multivitamin Therapeutic Tab PO SCH (08:56)
[2017-06-24] MEDS: Calcium-Vit D 250 mg-125 Units Tab UD PO SCH (09:05)
[2017-06-24] MEDS: Metoprolol Succinate 25 mg XL Tab PO SCH (09:07)
[2017-06-24 09:08] VITALS: BP 127/69; PULSE 72
--- NOTE | 2017-06-24 17:29 | PN ---
DATE: 06/24/2017 LOCATION: The patient in room 319, bed 1. REASON FOR CONSULTATION: Followup visit, history of fall, coronary artery disease. SUBJECTIVE: The patient denies any chest pain, shortness of breath or palpation. The patient has no dizziness. PHYSICAL EXAMINATION: VITAL SIGNS: Blood pressure 127/69, respirations 20, pulse 72, temperature 97.5. HEENT: Head is normocephalic. Eyes: Pupils normal. Conjunctivae slightly pale. NECK: JVP low. Carotid equal. Thorax AP diameter normal. LUNGS: Clear. CARDIOVASCULAR: S1 and S2. ABDOMEN: Soft, nontender. No organomegaly. SKIN: On the face, the patient had multiple ecchymosis spots due to fall. LABORATORY DATA: WBC 4.3, hemoglobin 9.7, hematocrit 28.6, and platelet count 132. Sodium 134, potassium 3.7, BUN 10, creatinine 0.5, AST 75, ALT 62. DIAGNOSES: Protein-calorie malnutrition, which was not present on admission, status post fall with history of alcohol abuse, coronary artery disease, frequent urinary tract infection, deconditioning, abnormal liver function test probably related drinking, deconditioning. PLAN: Continue physical therapy. The patient is on ampicillin 500 mg p.o. q.i.d., aspirin 81 mg daily, ferrous sulfate 324 t.i.d., Lipitor 20 daily, amlodipine 5 daily, Toprol XL 25 mg daily. We will continue present therapy. We will follow with you. Jenifer Munguia MD
== END 2017-06-24 14:09 | disposition home health service (06) | DRG 92 ==
LOC: TRCU 15:52
PROVIDERS: ADMIT Internal Medicine Nephrology; ATTEND Internal Medicine Nephrology
PROC: F07Z9FZ Gait Training/Functional Ambulation Treatment using Assistive, Adaptive, Supportive or Protective Equipment (ICD-10-PCS; principal; 2017-06-18)
PROC: F07Z5ZZ Bed Mobility Treatment (ICD-10-PCS; 2017-06-18)
PROC: F07Z8ZZ Transfer Training Treatment (ICD-10-PCS; 2017-06-18)
PROC: F07L6YZ Therapeutic Exercise Treatment of Musculoskeletal System - Lower Back / Lower Extremity using Other Equipment (ICD-10-PCS; 2017-06-18)
PROC: F08Z2FZ Grooming/Personal Hygiene Treatment using Assistive, Adaptive, Supportive or Protective Equipment (ICD-10-PCS; 2017-06-18)
DX: R27.0 Ataxia, unspecified (principal); E44.1 Mild protein-calorie malnutrition; I11.0 Hypertensive heart disease with heart failure; I50.9 Heart failure, unspecified; N39.0 Urinary tract infection, site not specified; R26.9 Unspecified abnormalities of gait and mobility; E83.42 Hypomagnesemia; H35.30 Unspecified macular degeneration; E78.5 Hyperlipidemia, unspecified; I25.10 Atherosclerotic heart disease of native coronary artery without angina pectoris; K59.00 Constipation, unspecified; B96.20 Unspecified Escherichia coli [E. coli] as the cause of diseases classified elsewhere; F10.10 Alcohol abuse, uncomplicated; D72.819 Decreased white blood cell count, unspecified; D64.9 Anemia, unspecified; R29.6 Repeated falls; Z68.20 Body mass index [BMI] 20.0-20.9, adult; S02.81XD Fracture of other specified skull and facial bones, right side, subsequent encounter for fracture with routine healing; S02.40CD Maxillary fracture, right side, subsequent encounter for fracture with routine healing; W19.XXXD Unspecified fall, subsequent encounter; Z91.81 History of falling